=== PATIENT | male | born 1950 | race Caucasian/White ===

== ENCOUNTER → 2017-08-23 08:06 | Outpatient (CLI) | payer MEDICARE, OTHER, SELFPAY ==
--- NOTE | 2017-08-23 | DI.ECHO.S_ITS ---
[facility] +---------+ [facility] +---------+ : : [address] : : [place], [place] : : : : [id number] : : : : Phone: [phone]+ Echocardiogram Report + + :Name: FERSANGDENISSEANSHU LOVELY Gustavo Study Date: 08/23/2017 Height: 72 in : :[facility] Weight: 308 lb : : Gender: Male BSA: 2.6 m2 : :: 1950 Age: 67 yrs BP: 160/92 mmHg: :Reason For Study: Atrial fibrillation : : Performed By: Sarah Lizarraga : :Referring: SHERIE LR : + + Interpretation Summary Left ventricular systolic function is low normal with the ejection fraction grossly estimated to be 50-60% with considerable teuu-pk-xahl variability but no obvious focal wall motion abnormality and grossly appears unchanged compared to the previous study. Left ventricular wall thickness is mildly increased but likely unchanged compared to the previous study. The right ventricle is mildly dilated and systolic function is mildly reduced. The right ventricle appears slightly larger and slightly less dynamic compared to the previous study. The right ventricular systolic pressure is estimated at 50 mmHg assuming a right atrial pressure of 8 mm Hg, and is likely similar to the previous study. The left atrium is moderately dilated and the right atrium is moderate to severely dilated. Both atria are essentially unchanged in size since the prior echo exam. There is mild to moderate tricuspid regurgitation that is slightly more prominent compared to the previous study but there is no other significant valvular heart disease. The aortic root and ascending aorta are mildly enlarged but grossly similar in size compared to the previous study. The patient was in atrial fibrillation with heart rates between 87-104 bpm during the exam which is slightly slower compared to the previous study. Procedure: A two-dimensional transthoracic echocardiogram with color flow and Doppler was performed. The study quality was technically difficult. Comparison is made with the echocardiogram of 06-14-12. 1.5 ml of Definity contrast was used to improve image quality. The patient was in atrial fibrillation with heart rates between 87-104 bpm during the exam. This is slightly slower compared to the previous study. Left Ventricle: The left ventricle is normal in size. Left ventricular wall thickness is mildly increased. This is unchanged compared to the previous study. Left ventricular systolic function is low normal. Left ventricular ejection fraction is estimated to be 50-60%. There is considerable beat-to- beat variability but no obvious focal wall motion abnormality. This is unchanged compared to the previous study. Diastolic function could not be accurately assessed due to atrial fibrillation. Right Ventricle: The right ventricle is mildly dilated. Right ventricular systolic function is mildly reduced. This is slightly larger and slightly less dynamic compared to the previous study. Atria: The left atrium is moderately dilated. Both atria have remained unchanged in size since the prior echo exam. The right atrium is moderate to severely dilated. The interatrial septum is intact with no evidence for an atrial septal defect. Mitral Valve: The mitral valve is normal in structure and function. There is trace mitral regurgitation. Aortic Valve: The aortic valve is trileaflet. The aortic valve opens well. No aortic regurgitation is present. Tricuspid Valve: The tricuspid valve leaflets are thin and pliable. There is mild to moderate tricuspid regurgitation. This is slightly more prominent compared to the previous study. The right ventricular systolic pressure is estimated at 50 mmHg assuming a right atrial pressure of 8 mm Hg. Likely similar to the previous study. Pulmonic Valve: The pulmonic valve is not well seen, but is grossly normal. There is trace pulmonic regurgitation. There is no other significant valvular heart disease. Great Vessels: The aortic root is mildly dilated. The ascending aorta is mildly enlarged. This is grossly similar in size compared to the previous study. The IVC is dilated (diameter is greater than 2.1 cm) yet it collapses greater than 50% with a sniff. This suggests a right atrial pressure of 8 mm Hg. Pericardium/ Pleura There is no pericardial effusion. There is an anterior echo-free space consistent with a fat pad. There is no pleural effusion. MMode/2D Measurements & Calculations LVIDd: 5.3 cm Ao root diam: 3.8 cm LVIDs: 3.9 cm Aortic Jxn: 3.1 cm FS: 26.0 % asc Aorta Diam: 3.7 cm EPSS: 0.92 cm Ao Arch Diam (Prox Trans): 2.9 cm IVSd: 1.5 cm LVPWd: 0.99 cm LV pires. diameter/BSA (cm/m^2): 2.1 LV sys. diameter/BSA (cm/m^2): 1.5 LA A2 area: 31.9 cm2 RA long axis: 8.0 cm LA A4 area: 34.4 cm2 RA area: 34.3 cm2 LA length (vol): 7.5 cm RA vol: 124.8 ml LA vol: 124.5 ml RA : 48.7 ml/m2 LA vol index: 48.7 ml/m2 IVC diam: 2.1 cm RVDd major: 6.5 cm RVD1 (basal): 2.8 cm RVD2 (mid): 2.7 cm Doppler Measurements & Calculations Ao V2 max: 139.7 cm/sec Med Peak E' Reagan: 8.0 cm/sec Ao V2 mean: 91.6 cm/sec Lat Peak E' Reagan: 11.4 cm/sec Ao max P.8 mmHg MV P1/2t: 53.6 msec Ao mean P.9 mmHg Ao V2 VTI: 26.9 cm TR max reagan: 324.2 cm/sec MV V2 mean: 59.0 cm/sec TR max P.0 mmHg MV mean P.9 mmHg PA V2 max: 85.3 cm/sec MV V2 VTI: 15.4 cm PA V2 mean: 55.1 cm/sec PA mean P.4 mmHg PA Accel Time: 0.12 sec MV P1/2t max reagan: 119.9 cm/sec MVA(P1/2t): 4.1 cm2 Reading Physician:PM
[2017-08-23 09:52] LABS: Alanine Aminotransferase 39 IU/L (21-72); Albumin 4.4 g/dL (3.5-5.0); Albumin Globulin Ratio 1.3 (1.0-2.8); Alkaline Phosphatase 61 U/L (38-126); Aspartate Aminotransferase 27 IU/L (17-59); BUN Creatinine Ratio 22.9 (6-22); Bilirubin Total 1.3 mg/dL (0.2-1.3); Calcium 9.1 mg/dL (8.4-10.2); Cholesterol 129 mg/dL (140-199); Estimated Glomerular Filt Rate > 60.0 mL/min (>60); Globulin 3.3 g/dL (1.7-4.1); Glucose 115 mg/dL (80-110); HDL Cholesterol 31 mg/dL (40-60); HEMOLYSIS < 15 (0-50); LDL Cholesterol Calculated 77 mg/dL (<100); Potassium 3.8 mmol/L (3.4-5.1); Sodium 144 mmol/L (137-145); Total Protein 7.7 g/dL (6.3-8.2); Triglycerides 107 mg/dL (35-150)
[2017-08-23 10:19] LABS: Thyroid Stimulating Hormone 3.85 uIU/mL (0.47-4.68)
== END ==
PROVIDERS: PCP Family Medicine; Visit Provider Specialist
DX: I48.2 Chronic atrial fibrillation (principal); I10 Essential (primary) hypertension; E78.2 Mixed hyperlipidemia
CPT/HCPCS: 36415; 80053; 80061; 83735; 84443; 93306; Q9957

== ENCOUNTER → 2018-02-13 13:57 | Outpatient (CLI) | payer MEDICARE, OTHER, SELFPAY ==
[2018-02-13 14:15] LABS: Mean Corpuscular HGB Conc 34.1 % (30-36); Mean Corpuscular Hemoglobin 32.6 PG (26-34); Mean Corpuscular Volume 95.4 fL (80-100); Platelet Count 159 X10^3/uL (150-400); Red Blood Cell Count 4.92 X10^6/uL (4.5-5.9); Red Cell Distribution Width 17.6 % (11.6-14.8)
[2018-02-13 15:16] LABS: Alanine Aminotransferase 34 IU/L (21-72); Albumin 4.6 g/dL (3.5-5.0); Albumin Globulin Ratio 1.4 (1.0-2.8); Alkaline Phosphatase 56 U/L (38-126); Aspartate Aminotransferase 32 IU/L (17-59); BUN Creatinine Ratio 24.3 (6-22); Bilirubin Total 1.1 mg/dL (0.2-1.3); Blood Urea Nitrogen 17 mg/dL (9-20); Calcium 9.3 mg/dL (8.4-10.2); Carbon Dioxide 31 mmol/L (22-32); Chloride 101 mmol/L (98-107); Estimated Glomerular Filt Rate > 60.0 mL/min (>60); Globulin 3.2 g/dL (1.7-4.1); Glucose 108 mg/dL (80-110); HEMOLYSIS < 15 (0-50); Potassium 4.6 mmol/L (3.4-5.1); Sodium 143 mmol/L (137-145); Total Protein 7.8 g/dL (6.3-8.2)
[2018-02-13 15:19] LABS: HEMOLYSIS < 15 (0-50); Iron 140 ug/dL (49-181)
[2018-02-13 15:30] LABS: Percent Iron Saturation 37 % (20-50); Total Iron Binding Capacity 377 ug/dL (261-462); Transferrin 318 mg/dL (206-381)
[2018-02-13 15:58] LABS: Vitamin D 25 Hydroxy (D3) 48.7 ng/mL (30.0-100.0)
== END ==
PROVIDERS: PCP Student in an Organized Health Care Education/Training Program; Visit Provider Student in an Organized Health Care Education/Training Program
DX: E83.119 Hemochromatosis, unspecified (principal); E87.6 Hypokalemia; I10 Essential (primary) hypertension; E55.9 Vitamin D deficiency, unspecified
CPT/HCPCS: 36415; 80053; 82306; 83540; 83550; 85027

== ENCOUNTER → 2018-03-03 08:50 | Outpatient (CLI) | payer MEDICARE, OTHER, SELFPAY ==
--- NOTE | 2018-03-03 08:52 | DI.US.S_ITS ---
PROCEDURE: US ABD AORTA ANEURYSM SCREEN INDICATIONS: AAA SCREEN TECHNIQUE: Real time scanning was performed of the aorta and iliac arteries, with image documentation. COMPARISON: [facility], CT, ABDOMEN/PELVIS WITH CONTRAST, 05/19/2017, 14:52. FINDINGS: Aorta: Proximal aortic diameter measures 3.0 cm. Mid-aorta is not well-seen due to bowel gas. Distal aortic diameter is 2.4 cm. Iliac arteries: Right common iliac artery measures 1.8 cm. Left common iliac artery measures 1.8 cm. IMPRESSION: 1. 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 Given the change compared to the prior CT and the differences in technique, a followup ultrasound is recommended in 12 months to demonstrate stability. Dictated by: Galindo Chaudhry M.D. on 03/03/2018 at 9:20 Approved by: Galindo Chaudhry M.D. on 03/03/2018 at 9:26
== END ==
PROVIDERS: PCP Student in an Organized Health Care Education/Training Program; Visit Provider Student in an Organized Health Care Education/Training Program
DX: Z13.6 Encounter for screening for cardiovascular disorders (principal); Z87.891 Personal history of nicotine dependence
CPT/HCPCS: 76706

== ENCOUNTER → 2018-07-04 15:31 | Outpatient (CLI) | payer MEDICARE, OTHER, SELFPAY ==
[2018-07-04 19:08] LABS: Appearance Urine UA CLOUDY; Bilirubin Urine UA NEGATIVE (NEGATIVE); Color Urine UA YELLOW; Glucose Urine UA NEGATIVE (Negative); Ketones Urine UA NEGATIVE (NEGATIVE); Leukocyte Esterase Urine UA 2+ (NEGATIVE); Nitrite Urine UA POSITIVE (Negative); Occult Blood Urine UA 2+ (Negative); Protein Urine UA TRACE (Negative); Urobilinogen Urine UA 0.2 E.U./dL (0.2); pH Urine UA 6.5 (4.5-8.0)
[2018-07-04 19:20] LABS: Amorphous Sediment Urine 1+; Bacteria Urine Moderate (10-30); Culture Indicated Urine Specimen Cultured; Mucus Urine 1+ (Negative); RBC Urine 1-5/HPF (0-5/HPF); Squamous Epithelial Cell Urine 0-1 /HPF; WBC Urine >100/HPF (0-5/HPF)
== END ==
PROVIDERS: PCP Student in an Organized Health Care Education/Training Program; Visit Provider Registered Nurse
DX: R39.89 Other symptoms and signs involving the genitourinary system (principal)
CPT/HCPCS: 81001; 87077; 87086; 87186

== ENCOUNTER → 2018-07-06 09:34 | Outpatient (CLI) | payer MEDICARE, OTHER, SELFPAY ==
[2018-07-06 11:22] LABS: Prostate Specific Antigen 2.25 ng/mL (0.10-4.00)
== END ==
PROVIDERS: PCP Student in an Organized Health Care Education/Training Program; Visit Provider Registered Nurse
DX: N40.0 Benign prostatic hyperplasia without lower urinary tract symptoms (principal)
CPT/HCPCS: 36415; 84153

== ENCOUNTER 2018-08-08 06:26 | Day surgery (SDC) | payer MEDICARE, OTHER, SELFPAY ==
[2018-08-08 07:14] VITALS: BP 153/107; PULSE 81; RESP 12; TEMP 36.3; O2SAT 96
[2018-08-08] MEDS: PROPARACAINE 0.5% OPHTH SOL 2 DROPS EYE-OP (07:30)
[2018-08-08] MEDS: CATARACT EYE COMPOUND (10 DROPS/SYRINGE) 3 DROPS EYE-OP (07:30)
[2018-08-08 07:32] VITALS: BMI 86.5
--- NOTE | 2018-08-08 07:47 | PM.PREOP ---
Pre-operative Note Interval Note History & Physical reviewed/Exam performed by Physician: No Changes to H&P: No
--- NOTE | 2018-08-08 07:47 | PM.OP.1 ---
Operative Date/Time/Diagnoses Pre-op diagnosis: Nuclear Cataract Left eye Post-op diagnosis: same Procedure & Clinicians Surgeon: Ezra Reid Anesthesia Type: MAC +/- and Sedation Operative Notes Procedure in detail: Patient brought to the operating suite. Tetracaine drops placed in the left eye. Patient was prepped and draped in sterile manner. Wire lid speculum was placed in the eye. Betadine drops were placed on the eye. This was irrigated. Lidocaine jelly was placed on the eye. A paracentesis port was created with a side-port blade. 0.1 mL 1% preservative free lidocaine was injected into the anterior chamber. The anterior chamber was deepened with viscoelastic. 2.6 mm keratome was used to create a temporal clear corneal incision. Cystotome and Utrata forceps were used to create continuous tear capsulorrhexis. Balanced salt solution was used to hydro dissect the nucleus. The phacoemulsification handpiece was inserted and the nucleus was removed using the stop and chop technique. The irrigation aspiration handpiece was inserted and the remaining cortex was removed. Anterior chamber was deepened with viscoelastic. An Brown ZCB00 intraocular lens with a power of 19.0 was injected into the capsular bag. Irrigation aspiration handpiece was inserted and the remaining viscoelastic was removed. Incision was hydrated with balanced salt solution and found to be leak free with pressure with Weck-Katlyn sponges. 0.1 mL Vigamox injected anterior chamber. 0.3 mL Kenalog 10 mg was injected subconjunctivally. Lid speculum was removed. The patient left the operating room in excellent condition. Complications: none Condition: stable Disposition: same day surgery
--- NOTE | 2018-08-08 07:51 | SUR.OPER ---
Supine on eye stretcher, head on extension cradle secured with tape. Arms tucked at sides with blanket. Pillow under knees.
[2018-08-08] MEDS: TRIAMCINOLONE 50 MG/5 ML VIAL INJ (08:02)
[2018-08-08] MEDS: PHENYLEPHRINE/LIDOCAINE VIAL (OR) 0.2 ML EYE-OP (08:02)
[2018-08-08] MEDS: MOXIFLOXACIN OPHTH DROPS 3 ML BOTTLE 2 DROPS INJ (08:02)
[2018-08-08] MEDS: CHONDROIDTIN/SOD HYALURONATE 1.05 ML SYRINGE INTRAOCULA (08:03)
[2018-08-08] MEDS: LIDOCAINE JELLY 2% 5 ML 1 APPLIC TOP (08:04)
[2018-08-08] MEDS: TETRACAINE 0.5% OPHTH DROPS 4 ML 2 DROPS EYE-OP (08:04)
[2018-08-08] MEDS: BALANCED SALT IRRIG SOLN NO.2 500 ML, EPINEPHrine 1 MG IRR (08:05)
[2018-08-08 08:11] VITALS: BP 144/86; PULSE 80; RESP 15; TEMP 36.4; O2SAT 97
--- NOTE | 2018-08-08 08:23 | SUR.PHASEII ---
pt dressed when ready and left when ready and in stable condition.
== END 2018-08-08 08:25 ==
LOC: OR 06:29
PROVIDERS: PCP Student in an Organized Health Care Education/Training Program; Visit Provider Ophthalmology
DX: H25.12 Age-related nuclear cataract, left eye (principal); I10 Essential (primary) hypertension
CPT/HCPCS: J0171; J3301

== ENCOUNTER → 2018-08-10 12:48 | Outpatient (CLI) | payer MEDICARE, OTHER, SELFPAY ==
[2018-08-10 13:00] LABS: Hematocrit 48.2 % (41-53); Hemoglobin 16.2 g/dL (13.5-17.5); Mean Corpuscular HGB Conc 33.5 % (30-36); Mean Corpuscular Hemoglobin 33.6 PG (26-34); Mean Corpuscular Volume 100.2 fL (80-100); Platelet Count 163 X10^3/uL (150-400); Red Blood Cell Count 4.81 X10^6/uL (4.5-5.9); Red Cell Distribution Width 14.5 % (11.6-14.8); White Blood Cell Count 7.2 X10^3/uL (4.5-11.0)
[2018-08-10 13:26] LABS: HEMOLYSIS < 15 (0-50); Iron 209 ug/dL (49-181)
[2018-08-10 13:37] LABS: Percent Iron Saturation 59 % (20-50); Total Iron Binding Capacity 356 ug/dL (261-462); Transferrin 276 mg/dL (206-381)
[2018-08-10 13:58] LABS: 585 Gram Check PASS; Prediastolic 101; Presystolic 153; Pulse 67; Zero Check Sebra Scale PASS
[2018-08-10 13:59] LABS: Amount Collected in g 585 GRAM; Dizziness NO; Postdiastolic BP 111; Postsystolic BP 158; Site of phlebotomy LEFT AC; Swelling NO; Therapeutic Phleb Comment NO COMMENT
== END ==
PROVIDERS: PCP Student in an Organized Health Care Education/Training Program; Visit Provider Student in an Organized Health Care Education/Training Program
DX: E83.119 Hemochromatosis, unspecified (principal)
CPT/HCPCS: 36415; 83540; 83550; 85027; 99195

== ENCOUNTER 2018-08-22 06:23 | Day surgery (SDC) | payer MEDICARE, OTHER, SELFPAY ==
[2018-08-22 07:11] VITALS: BP 144/89; PULSE 78; RESP 20; TEMP 36.6; O2SAT 93; BMI 38.9
[2018-08-22] MEDS: PROPARACAINE 0.5% OPHTH SOL 2 DROPS EYE-OP (07:18)
[2018-08-22] MEDS: CATARACT EYE COMPOUND (10 DROPS/SYRINGE) 3 DROPS EYE-OP (07:24)
[2018-08-22] MEDS: PHENYLEPHRINE/LIDOCAINE VIAL (OR) 0.2 ML EYE-OP (07:53)
[2018-08-22] MEDS: TRIAMCINOLONE 50 MG/5 ML VIAL INJ (07:53)
[2018-08-22] MEDS: MOXIFLOXACIN OPHTH DROPS 3 ML BOTTLE 2 DROPS INJ (07:53)
[2018-08-22] MEDS: LIDOCAINE JELLY 2% 5 ML 1 APPLIC TOP (07:54)
[2018-08-22] MEDS: BALANCED SALT IRRIG SOLN NO.2 500 ML, EPINEPHrine 1 MG IRR (07:54)
[2018-08-22] MEDS: TETRACAINE 0.5% OPHTH DROPS 4 ML 2 DROPS EYE-OP (07:54)
[2018-08-22] MEDS: CHONDROIDTIN/SOD HYALURONATE 1.05 ML SYRINGE INTRAOCULA (07:54)
--- NOTE | 2018-08-22 08:00 | PM.PREOP ---
Pre-operative Note Interval Note History & Physical reviewed/Exam performed by Physician: No Changes to H&P: No
--- NOTE | 2018-08-22 08:01 | PM.OP.1 ---
Operative Date/Time/Diagnoses Pre-op diagnosis: Nuclear cataract right eye Procedure & Clinicians Procedure: Cataract Surgery Same procedure as scheduled: Yes Surgeon: Ezra Reid Anesthesia Type: MAC +/- and Sedation Operative Notes Procedure in detail: Patient brought to the operating suite. Tetracaine drops placed in the right eye. Patient was prepped and draped in sterile manner. Wire lid speculum was placed in the eye. Betadine drops were placed on the eye. This was irrigated. Lidocaine jelly was placed on the eye. A paracentesis port was created with a side-port blade. 0.1 mL 1% preservative free lidocaine was injected into the anterior chamber. The anterior chamber was deepened with viscoelastic. 2.6 mm keratome was used to create a temporal clear corneal incision. Cystotome and Utrata forceps were used to create continuous tear capsulorrhexis. Balanced salt solution was used to hydro dissect the nucleus. The phacoemulsification handpiece was inserted and the nucleus was removed using the stop and chop technique. The irrigation aspiration handpiece was inserted and the remaining cortex was removed. Anterior chamber was deepened with viscoelastic. An Brown ZCB00 intraocular lens with a power of 19.5 was injected into the capsular bag. Irrigation aspiration handpiece was inserted and the remaining viscoelastic was removed. Incision was hydrated with balanced salt solution and found to be leak free with pressure with Weck-Katlyn sponges. 0.1 mL Vigamox injected anterior chamber. 0.3 mL Kenalog 10 mg was injected subconjunctivally. Lid speculum was removed. The patient left the operating room in excellent condition. Complications: none Condition: stable Disposition: same day surgery
[2018-08-22 08:08] VITALS: BP 132/85; PULSE 89; RESP 16; TEMP 36.5; O2SAT 94
== END 2018-08-22 08:08 | disposition home or self-care (01) ==
LOC: OR 06:24
PROVIDERS: PCP Student in an Organized Health Care Education/Training Program; Visit Provider Ophthalmology
PROC: (CPT 66984; principal; 2018-08-22 07:45)
DX: H25.11 Age-related nuclear cataract, right eye (principal); I10 Essential (primary) hypertension
CPT/HCPCS: 66984; J0171; J2250; J3010; J3301

== ENCOUNTER → 2019-02-09 09:56 | Outpatient (CLI) | payer MEDICARE, OTHER, SELFPAY ==
[2019-02-09 10:46] LABS: 585 Gram Check PASS; Pulse 76; Zero Check Sebra Scale PASS
[2019-02-09 10:47] LABS: Dizziness NO; Postdiastolic BP 104; Postsystolic BP 160; Prediastolic 109; Presystolic 168; Site of phlebotomy RAC; Swelling NO; Therapeutic Phleb Comment NO COMMENT
[2019-02-09 11:22] LABS: Hematocrit 48.2 % (41-53); Hemoglobin 16.6 g/dL (13.5-17.5); Mean Corpuscular HGB Conc 34.4 % (30-36); Mean Corpuscular Volume 101.8 fL (80-100); Platelet Count 135 X10^3/uL (150-400); Red Blood Cell Count 4.74 X10^6/uL (4.5-5.9); Red Cell Distribution Width 13.6 % (11.6-14.8); White Blood Cell Count 6.8 X10^3/uL (4.5-11.0)
[2019-02-09 11:28] LABS: Alanine Aminotransferase 28 IU/L (<50); Albumin 4.9 g/dL (3.5-5.0); Albumin Globulin Ratio 1.6 (1.0-2.8); Alkaline Phosphatase 62 U/L (38-126); Aspartate Aminotransferase 32 IU/L (17-59); Bilirubin Total 1.6 mg/dL (0.2-1.3); Blood Urea Nitrogen 18 mg/dL (9-20); Calcium 9.8 mg/dL (8.4-10.2); Carbon Dioxide 28 mmol/L (22-32); Chloride 101 mmol/L (98-107); Estimated Glomerular Filt Rate > 60.0 mL/min (>60); Glucose 128 mg/dL (80-110); HEMOLYSIS < 15 (0-50); Iron 205 ug/dL (49-181); Sodium 141 mmol/L (137-145); Total Protein 7.9 g/dL (6.3-8.2)
[2019-02-09 11:38] LABS: Percent Iron Saturation 58 % (20-50); Total Iron Binding Capacity 353 ug/dL (261-462); Transferrin 277 mg/dL (206-381)
[2019-02-09 12:03] LABS: Ferritin 66.6 ng/mL (17.9-464)
[2019-02-12 12:46] LABS: Lipoprofile NMR SEE SEPERATE REPORT
== END ==
PROVIDERS: Specialist; PCP Student in an Organized Health Care Education/Training Program; Visit Provider Student in an Organized Health Care Education/Training Program
DX: E78.2 Mixed hyperlipidemia (principal); I48.20 Chronic atrial fibrillation, unspecified; E83.119 Hemochromatosis, unspecified; E87.6 Hypokalemia; I10 Essential (primary) hypertension
CPT/HCPCS: 36415; 80053; 82728; 83540; 83550; 83704; 85027; 99195

== ENCOUNTER → 2019-02-14 09:03 | Outpatient (CLI) | payer MEDICARE, OTHER, SELFPAY ==
--- NOTE | 2019-02-14 09:05 | DI.US.S_ITS ---
PROCEDURE: US RETRO PERITONEAL LIMITED INDICATIONS: FOLLOW-UP TECHNIQUE: Real time scanning was performed of the aorta and iliac arteries, with image documentation. COMPARISON: None. FINDINGS: Aorta: Proximal aortic diameter measures 2.7 cm. Mid-aorta measures 2.2 cm. Distal aortic diameter is 2.1 cm. Iliac arteries: Right common iliac artery measures 1.5 cm. Left common iliac artery measures 1.6 cm. IMPRESSION: Stable ectasia of the aorta. 5 year follow up ultrasound recommended. Dictated by: Sanya BOWERS Interpreted: Jennifer Diallo MD on 02/14/2019 at 10:28 Approved by: Jennifer Diallo MD, PhD on 02/14/2019 at 10:50
== END ==
PROVIDERS: Family Provider Specialist; PCP Student in an Organized Health Care Education/Training Program; Visit Provider Student in an Organized Health Care Education/Training Program
DX: I77.819 Aortic ectasia, unspecified site (principal)
CPT/HCPCS: 76775

== ENCOUNTER → 2019-03-20 10:04 | Outpatient (CLI) | payer MEDICARE, OTHER, SELFPAY ==
[2019-03-20 10:18] LABS: Bacteria Urine None Seen; RBC Urine None Seen (0-5/HPF); WBC Urine None Seen (0-5/HPF)
[2019-03-20 11:00] LABS: Hematocrit 46.2 % (41-53); Hemoglobin 16.1 g/dL (13.5-17.5); Mean Corpuscular HGB Conc 34.9 % (30-36); Mean Corpuscular Hemoglobin 35.3 PG (26-34); Mean Corpuscular Volume 101.2 fL (80-100); Platelet Count 164 X10^3/uL (150-400); Red Blood Cell Count 4.57 X10^6/uL (4.5-5.9); Red Cell Distribution Width 13.9 % (11.6-14.8); White Blood Cell Count 6.5 X10^3/uL (4.5-11.0)
[2019-03-20 11:32] LABS: Appearance Urine UA CLEAR; Bilirubin Urine UA NEGATIVE (NEGATIVE); Color Urine UA YELLOW; Glucose Urine UA NEGATIVE (Negative); Ketones Urine UA NEGATIVE (NEGATIVE); Leukocyte Esterase Urine UA NEGATIVE (NEGATIVE); Nitrite Urine UA NEGATIVE (Negative); Occult Blood Urine UA NEGATIVE (Negative); Protein Urine UA 1+ (Negative); Specific Gravity Urine UA <=1.005 (1.000-1.035); Urobilinogen Urine UA 0.2 E.U./dL (0.2)
[2019-03-20 11:36] LABS: HEMOLYSIS < 15 (0-50); Iron 162 ug/dL (49-181)
[2019-03-20 11:47] LABS: Percent Iron Saturation 46 % (20-50); Total Iron Binding Capacity 356 ug/dL (261-462); Transferrin 285 mg/dL (206-381)
[2019-03-20 11:47] LABS: Culture Indicated Urine Cult Not Indicated; Urine Comments Microscopic Normal
[2019-03-20 12:13] LABS: Ferritin 56.8 ng/mL (17.9-464)
== END ==
PROVIDERS: PCP Student in an Organized Health Care Education/Training Program; Visit Provider Student in an Organized Health Care Education/Training Program
DX: E83.119 Hemochromatosis, unspecified (principal); E87.6 Hypokalemia; I10 Essential (primary) hypertension; R31.21 Asymptomatic microscopic hematuria
CPT/HCPCS: 36415; 81001; 82728; 83540; 83550; 85027

== ENCOUNTER → 2019-08-14 09:17 | Outpatient (CLI) | payer MEDICARE, OTHER, SELFPAY ==
[2019-08-14 10:56] LABS: Alanine Aminotransferase 41 IU/L (<50); Albumin 4.5 g/dL (3.5-5.0); Albumin Globulin Ratio 1.3 (1.0-2.8); Alkaline Phosphatase 55 U/L (38-126); Aspartate Aminotransferase 38 IU/L (17-59); BUN Creatinine Ratio 23.9 (6-22); Blood Urea Nitrogen 16 mg/dL (9-20); Calcium 9.2 mg/dL (8.4-10.2); Carbon Dioxide 30 mmol/L (22-32); Chloride 102 mmol/L (98-107); Estimated Glomerular Filt Rate > 60.0 mL/min (>60); Globulin 3.6 g/dL (1.7-4.1); Glucose 120 mg/dL (80-110); HEMOLYSIS < 15 (0-50); Potassium 3.9 mmol/L (3.4-5.1); Sodium 139 mmol/L (137-145); Total Protein 8.1 g/dL (6.3-8.2)
[2019-08-16 08:19] LABS: Cholesterol, Total 143 mg/dL (100-199); HDL-Cholesterol 38 mg/dL (>39); HDL-Particle (Total) 28.2 umol/L (>=30.5); Historical Reading Comment: (.); LDL Particle 1186 nmol/L (<1000); LDL-Cholsterol 84 mg/dL (0-99); LP-IR Score 61 (<=45); Small LDL- Particle 819 nmol/L (<=527); Triglycerides 107 mg/dL (0-149)
== END ==
PROVIDERS: PCP Student in an Organized Health Care Education/Training Program; Referring Provider Specialist; Visit Provider Specialist
DX: I48.20 Chronic atrial fibrillation, unspecified (principal); E78.2 Mixed hyperlipidemia
CPT/HCPCS: 36415; 80053; 80061; 83704

== ENCOUNTER → 2019-08-30 09:27 | Outpatient (CLI) | payer MEDICARE, OTHER, SELFPAY ==
[2019-08-30 10:44] LABS: Alanine Aminotransferase 35 IU/L (<50); Albumin 4.6 g/dL (3.5-5.0); Albumin Globulin Ratio 1.4 (1.0-2.8); Alkaline Phosphatase 63 U/L (38-126); Aspartate Aminotransferase 41 IU/L (17-59); Bilirubin Total 1.7 mg/dL (0.2-1.3); Blood Urea Nitrogen 18 mg/dL (9-20); Calcium 9.3 mg/dL (8.4-10.2); Carbon Dioxide 31 mmol/L (22-32); Chloride 99 mmol/L (98-107); Estimated Glomerular Filt Rate > 60.0 mL/min (>60); Globulin 3.4 g/dL (1.7-4.1); Glucose 129 mg/dL (80-110); HEMOLYSIS < 15 (0-50); Potassium 3.8 mmol/L (3.4-5.1); Sodium 138 mmol/L (137-145)
[2019-09-03 08:08] LABS: Cholesterol, Total 142 mg/dL (100-199); HDL-Cholesterol 36 mg/dL (>39); HDL-Particle (Total) 24.6 umol/L (>=30.5); Historical Reading Comment: (.); LDL Particle 1323 nmol/L (<1000); LDL Size 20.1 nm (>20.5); LDL-Cholsterol 83 mg/dL (0-99); LP-IR Score 63 (<=45); Small LDL- Particle 879 nmol/L (<=527); Triglycerides 116 mg/dL (0-149)
== END ==
PROVIDERS: PCP Student in an Organized Health Care Education/Training Program; Referring Provider Specialist; Visit Provider Specialist
DX: I48.20 Chronic atrial fibrillation, unspecified (principal); E78.2 Mixed hyperlipidemia
CPT/HCPCS: 36415; 80053; 80061; 83704

== ENCOUNTER → 2019-09-27 09:45 | Outpatient (CLI) | payer MEDICARE, OTHER, SELFPAY ==
[2019-09-27 10:18] LABS: 585 Gram Check PASS; Dizziness NO; Postdiastolic BP 101; Postsystolic BP 155; Prediastolic 103; Presystolic 155; Pulse 88; Site of phlebotomy LAC; Swelling NO; Therapeutic Phleb Comment NO COMMENT; Zero Check Sebra Scale PASS
[2019-09-27 10:30] LABS: Hematocrit 47.8 % (41-53); Hemoglobin 16.7 g/dL (13.5-17.5); Mean Corpuscular Hemoglobin 35.4 PG (26-34); Mean Corpuscular Volume 101.3 fL (80-100); Platelet Count 140 X10^3/uL (150-400); Red Blood Cell Count 4.72 X10^6/uL (4.5-5.9); Red Cell Distribution Width 13.8 % (11.6-14.8); White Blood Cell Count 6.3 X10^3/uL (4.5-11.0)
[2019-09-27 11:06] LABS: HEMOLYSIS 17 (0-50); Iron 193 ug/dL (49-181)
[2019-09-27 11:16] LABS: Percent Iron Saturation 54 % (20-50); Total Iron Binding Capacity 357 ug/dL (261-462); Transferrin 270 mg/dL (206-381)
[2019-09-27 11:42] LABS: Ferritin 110 ng/mL (18-464)
== END ==
PROVIDERS: PCP Student in an Organized Health Care Education/Training Program; Referring Provider Student in an Organized Health Care Education/Training Program; Visit Provider Student in an Organized Health Care Education/Training Program
DX: E83.119 Hemochromatosis, unspecified (principal)
CPT/HCPCS: 82728; 83540; 83550; 85027; 99195

== ENCOUNTER → 2020-01-09 12:11 | Outpatient (CLI) | payer MEDICARE, OTHER, SELFPAY ==
[2020-01-09 14:54] LABS: Alanine Aminotransferase 29 IU/L (<50); Albumin 4.6 g/dL (3.5-5.0); Albumin Globulin Ratio 1.3 (1.0-2.8); Alkaline Phosphatase 60 U/L (38-126); Aspartate Aminotransferase 34 IU/L (17-59); BUN Creatinine Ratio 24.2 (6-22); Bilirubin Total 1.6 mg/dL (0.2-1.3); Blood Urea Nitrogen 16 mg/dL (9-20); Calcium 9.5 mg/dL (8.4-10.2); Carbon Dioxide 31 mmol/L (22-32); Chloride 102 mmol/L (98-107); Estimated Glomerular Filt Rate > 60.0 mL/min (>60); Globulin 3.6 g/dL (1.7-4.1); Glucose 115 mg/dL (80-110); HEMOLYSIS < 15 (0-50); Magnesium 2.1 mg/dL (1.6-2.3); Potassium 3.6 mmol/L (3.4-5.1); Sodium 139 mmol/L (137-145); Total Protein 8.2 g/dL (6.3-8.2)
[2020-01-16 13:16] LABS: LDL Particle 1585
[2020-01-16 13:17] LABS: Cholesterol, Total 168; HDL-Cholesterol 35; HDL-Particle (Total) 25.9; LDL Size 20.1; LDL-Cholsterol 110; LP-IR Score 81; Small LDL- Particle 923; Triglycerides 130
== END ==
PROVIDERS: PCP Student in an Organized Health Care Education/Training Program; Referring Provider Specialist; Visit Provider Specialist
DX: I10 Essential (primary) hypertension (principal); E78.2 Mixed hyperlipidemia; I48.20 Chronic atrial fibrillation, unspecified
CPT/HCPCS: 36415; 80053; 80061; 83704; 83735

== ENCOUNTER → 2020-01-25 10:53 | Outpatient (CLI) | payer MEDICARE, OTHER, SELFPAY ==
[2020-01-25 12:57] LABS: BUN Creatinine Ratio 32.8 (6-22); Blood Urea Nitrogen 22 mg/dL (9-20); Calcium 9.4 mg/dL (8.4-10.2); Carbon Dioxide 29 mmol/L (22-32); Chloride 102 mmol/L (98-107); Estimated Glomerular Filt Rate > 60.0 mL/min (>60); Glucose 109 mg/dL (80-110); HEMOLYSIS < 15 (0-50); Potassium 3.8 mmol/L (3.4-5.1); Sodium 140 mmol/L (137-145)
== END ==
PROVIDERS: PCP Student in an Organized Health Care Education/Training Program; Referring Provider Specialist; Visit Provider Specialist
DX: I10 Essential (primary) hypertension (principal)
CPT/HCPCS: 36415; 80048

== ENCOUNTER → 2020-02-05 14:46 | Outpatient (CLI) | payer MEDICARE, OTHER, SELFPAY ==
--- NOTE | 2020-02-05 | DI.ECHO.S_ITS ---
[facility] +---------+ Hospital +---------+ : : [address] : : : : [place] : : : : [id number] : : : : Phone: [phone]+ Echocardiogram Report + + :Name: LOVELY GEORGE Study Date: 02/05/2020 Height: 72 in : :[facility] Weight: 312 lb : : Gender: Male BSA: 2.6 m2 : :: 1950 Age: 69 yrs BP: 164/90 mmHg: :Reason For Study: PULMONARY HYPERTENSION : :Ordering Physician: BE, : :SHERIE Performed By: Hien Barton : :Referring: SHERIE LR : + + Interpretation Summary Left ventricular systolic function grossly appears normal without any obvious focal wall motion abnormality with an ejection fraction of 55 to 65% with considerable icfd-ui-jhbu variability because of atrial fibrillation. It appears slightly more dynamic compared to the previous study. There is mild to moderate LVH but diastolic function cannot be accurately assessed because of atrial fibrillation yet there is no significant evidence for elevated filling pressures. The right ventricle is mild to moderately enlarged with mildly reduced systolic function and appears larger and slightly less dynamic compared to the previous study. There continues to be moderate pulmonary hypertension with a right ventricular systolic pressure estimated at 54 mmHg with a CVP of 3 mmHg, likely similar to the previous study. There is severe biatrial enlargement with both atria significantly increasing in size since the previous study. There is mild to moderate tricuspid regurgitation that remains unchanged and no other significant valvular abnormality. The ascending aorta is moderately enlarged and measures slightly larger compared to the previous study. The aortic arch is borderline enlarged. The patient was in atrial fibrillation at 70-101 bpm throughout the study. Procedure: A two-dimensional transthoracic echocardiogram with color flow and Doppler was performed. The study quality was technically difficult. A contrast injection of Definity was performed to improve assessment of LV function. Contrast was injected into an intravenous site in the right arm. The patient was in atrial fibrillation with heart rates between 70-101 bpm during the exam. Left Ventricle: The left ventricle is normal in size. Left ventricular wall thickness is mild-moderately increased. There is mild-moderate concentric left ventricular hypertrophy. The ejection fraction is estimated to be 55-60%. Left ventricular systolic function appears normal without focal wall motion abnormalities. Left ventricular ejection fraction is estimated to be 55 to 65% with considerable tkag-gl-ehku variation due to atrial fibrillation. This is slightly more dynamic compared to the previous study. Diastolic function could not be accurately assessed due to atrial fibrillation. This is unchanged compared to the previous study. Right Ventricle: The right ventricle is mild to moderately dilated. Right ventricular systolic function is mildly reduced. This is larger and slightly less dynamic compared to the previous study. Atria: Both atria are severely dilated. Both atria have significantly increased in size since the prior echo exam. There is no Doppler evidence for an interatrial shunt. Mitral Valve: The mitral valve is normal in structure and function. There is trace mitral regurgitation. This is unchanged compared to the previous study. Aortic Valve: The aortic valve is trileaflet. The aortic valve is grossly normal. The aortic valve opens well. There is no aortic valve stenosis. No aortic regurgitation is present. Tricuspid Valve: The tricuspid valve is not well visualized, but is grossly normal. There is mild to moderate tricuspid regurgitation. The right ventricular systolic pressure is estimated to be at least 54 mmHg based on an estimated right atrial pressure of 3 mm Hg. This is similar compared to the previous study. Pulmonic Valve: The pulmonic valve is not well visualized. There is trace pulmonic regurgitation. Great Vessels: The aortic root is normal size. The ascending aorta is mildly enlarged. This is slightly larger compared to the previous study. The aortic arch is at the upper limits of normal in size. The IVC is of normal diameter and collapses greater than 50% with a sniff. This suggests a low right atrial pressure of 3 mm Hg. Pericardium/ Pleura There is no pericardial effusion. There is no pleural effusion. MMode/2D Measurements & Calculations LVIDd: 4.8 cm LVOT diam: 2.3 cm LVIDs: 3.4 cm Ao root diam: 3.5 cm FS: 29.3 % asc Aorta Diam: 4.0 cm EPSS: 0.78 cm Ao Arch Diam (Prox Trans): 3.2 cm IVSd: 1.3 cm LVPWd: 1.6 cm LV piers. diameter/BSA (cm/m^2): 1.9 LV sys. diameter/BSA (cm/m^2): 1.3 LA A2 area: 37.0 cm2 RA long axis: 7.6 cm LA A4 area: 34.2 cm2 RA area: 40.6 cm2 LA length (vol): 7.2 cm RA vol: 183.1 ml LA vol: 148.7 ml RA : 71.2 ml/m2 LA vol index: 57.8 ml/m2 IVC diam: 1.7 cm RVD1 (basal): 4.8 cm Doppler Measurements & Calculations Ao V2 max: 142.7 cm/sec LVOT Max Reagan: 71.8 cm/sec Ao V2 mean: 105.0 cm/sec LV V1 max P.1 mmHg Ao max P.1 mmHg LV V1 VTI: 12.6 cm Ao mean P.8 mmHg ISAAC(I,D): 1.8 cm2 Ao V2 VTI: 29.6 cm ISAAC(V,D): 2.1 cm2 sev ratio: 0.43 ISAAC indexed to BSA (cm^2/m^2): 0.69 MV E max reagan: 112.7 cm/sec TR max reagan: 328.2 cm/sec MV A max reagan: 0.76 cm/sec TR max P.3 mmHg MV E/A: 147.5 PA V2 max: 75.6 cm/sec Med Peak E' Reagan: 9.6 cm/sec PA V2 mean: 42.1 cm/sec E/E' med: 11.8 PA mean P.89 mmHg Lat Peak E' Reagan: 14.0 cm/sec PA pr(Accel): 48.2 mmHg E/E' lat: 8.1 E/e' average: 9.9 MV dec time: 0.15 sec SV(LVOT): 52.5 ml Reading Physician:05:14 PM
== END ==
PROVIDERS: PCP Student in an Organized Health Care Education/Training Program; Referring Provider Specialist; Visit Provider Specialist
DX: I07.1 Rheumatic tricuspid insufficiency (principal); I27.20 Pulmonary hypertension, unspecified; I77.89 Other specified disorders of arteries and arterioles; G47.33 Obstructive sleep apnea (adult) (pediatric)
CPT/HCPCS: 93306; Q9957

== ENCOUNTER → 2020-04-29 16:34 | Outpatient (CLI) | payer MEDICARE, OTHER, SELFPAY ==
[2020-04-29] MEDS: COVID-19 VACC #1, MRNA(MOD) 100 MCG/0.5 ML VIAL IM (16:43)
== END ==
PROVIDERS: PCP Student in an Organized Health Care Education/Training Program; Visit Provider Internal Medicine
DX: Z23 Encounter for immunization (principal)
CPT/HCPCS: 0011A; 91301

== ENCOUNTER → 2020-05-28 16:07 | Outpatient (CLI) | payer MEDICARE, OTHER, SELFPAY ==
[2020-05-28] MEDS: COVID-19 VACC #2, MRNA(MOD) 100 MCG/0.5 ML VIAL IM (16:14)
== END ==
PROVIDERS: PCP Student in an Organized Health Care Education/Training Program; Visit Provider Internal Medicine
DX: Z23 Encounter for immunization (principal)
CPT/HCPCS: 0012A; 91301

== ENCOUNTER → 2020-06-18 15:55 | Outpatient (CLI) | payer MEDICARE, OTHER, SELFPAY ==
--- NOTE | 2020-06-18 15:58 | DI.RAD.S_ITS ---
PROCEDURE: XR FOOT RT MIN 3V INDICATIONS: Retained foreign body in right foot. TECHNIQUE: 3 views of the foot were acquired. COMPARISON: [facility], , FOOT 3V RIGHT, 10/16/2012, 11:13. FINDINGS: Bones: No fracture. Scattered degenerative subchondral sclerosis and spurring. Plantar calcaneal spurring. 1st MTP joint degeneration. Soft tissues: Linear metallic soft tissue foreign body projects adjacent to the 2nd and 3rd metatarsal as before. IMPRESSION: Unchanged appearance of the linear metallic foreign body as above. Scattered chronic degenerative changes. Dictated by: Denton Giordano M.D. on 06/18/2020 at 16:44 Approved by: Denton Giordano M.D. on 06/18/2020 at 16:48
== END ==
PROVIDERS: PCP Student in an Organized Health Care Education/Training Program; Referring Provider Student in an Organized Health Care Education/Training Program; Visit Provider Student in an Organized Health Care Education/Training Program
DX: S90.851A Superficial foreign body, right foot, initial encounter (principal)
CPT/HCPCS: 73630

== ENCOUNTER → 2020-08-05 08:40 | Outpatient (CLI) | payer MEDICARE, OTHER, SELFPAY ==
[2020-08-05 10:47] LABS: Alanine Aminotransferase 22 IU/L (<50); Albumin 4.3 g/dL (3.5-5.0); Albumin Globulin Ratio 1.4 (1.0-2.8); Alkaline Phosphatase 59 U/L (38-126); Aspartate Aminotransferase 27 IU/L (17-59); BUN Creatinine Ratio 23.8 (6-22); Bilirubin Total 1.4 mg/dL (0.2-1.3); Blood Urea Nitrogen 15 mg/dL (9-20); Calcium 9.5 mg/dL (8.4-10.2); Carbon Dioxide 33 mmol/L (22-32); Chloride 100 mmol/L (98-107); Estimated Glomerular Filt Rate > 60.0 mL/min (>60); Glucose 124 mg/dL (80-110); HEMOLYSIS < 15 (0-50); Potassium 3.8 mmol/L (3.4-5.1); Sodium 142 mmol/L (137-145); Total Protein 7.3 g/dL (6.3-8.2)
[2020-08-06 12:18] LABS: HEMOLYSIS < 15 (0-50); Iron 196 ug/dL (49-181)
[2020-08-06 12:28] LABS: Percent Iron Saturation 62 % (20-50); Total Iron Binding Capacity 314 ug/dL (261-462); Transferrin 236 mg/dL (206-381)
[2020-08-06 12:54] LABS: Ferritin 165 ng/mL (18-464)
[2020-08-07 10:09] LABS: Cholesterol, Total 115 mg/dL (100-199); HDL-Cholesterol 36 mg/dL (>39); HDL-Particle (Total) 27.9 umol/L (>=30.5); LDL Particle 810 nmol/L (<1000); LDL-Cholsterol 61 mg/dL (0-99); LP-IR Score 62 (<=45); Small LDL- Particle 520 nmol/L (<=527); Triglycerides 96 mg/dL (0-149)
== END ==
PROVIDERS: PCP Student in an Organized Health Care Education/Training Program; Referring Provider Specialist; Visit Provider Specialist
DX: E78.2 Mixed hyperlipidemia (principal); I48.20 Chronic atrial fibrillation, unspecified; E83.119 Hemochromatosis, unspecified
CPT/HCPCS: 36415; 80053; 80061; 82728; 83540; 83550; 83704; 83735

== ENCOUNTER → 2020-08-20 09:57 | Outpatient (CLI) | payer MEDICARE, OTHER, SELFPAY ==
[2020-08-20 10:36] LABS: 585 Gram Check PASS; Zero Check Sebra Scale PASS
[2020-08-20 10:37] LABS: Dizziness NO; Postdiastolic BP 102; Postsystolic BP 145; Prediastolic 106; Presystolic 156; Pulse 77; Site of phlebotomy RAC; Swelling NO; Therapeutic Phleb Comment NO COMMENT
[2020-08-20 12:16] LABS: Prostate Specific Antigen Scrn 0.894 ng/mL (0.1-4.0)
--- NOTE | 2020-08-20 16:14 | DI.MRI.S_ITS ---
PROCEDURE: MR CERVICAL SPINE WO CON INDICATIONS: Cervical radiculopathy TECHNIQUE: Noncontrast sagittal T1 spin echo and T2 fast spin echo, sagittal STIR, foraminal oblique sagittal T2 fast spin echo, and axial gradient echo or T2 fast spin echo through the cervical spine. COMPARISON: None. FINDINGS: Image quality: This examination is limited by involuntary motion artifact. Alignment and Curvature: There is norm overall straightening of the normal cervical lordosis. No focal AP alignment abnormality is seen. Bone Marrow: Marrow demonstrates normal overall signal. Spinal Cord: Visualized spinal cord has normal size and signal. No cerebellar tonsillar herniation. Paraspinous Soft Tissues: No paravertebral masses. Prevertebral soft tissues are normal in thickness. C2-C3: The disc height is well-preserved. Loss of disc signal is seen at this level. A mild degree of generalized disc osteophyte complex is seen. There is a mild central disc protrusion. There is mild left-sided and no right-sided neural foraminal narrowing seen. Mild central canal narrowing is seen. C3-C4: The disc height is well-preserved. Loss of disc signal is seen at this level. Moderate generalized disc osteophyte complex is seen. Moderate facet joint hypertrophy is seen. There is moderate to severe bilateral neural foraminal narrowing seen. Mild to moderate central canal narrowing is seen at this level. C4-C5: The disc height is well-preserved. Loss of disc signal is seen at this level. Moderate generalized disc osteophyte complex is seen. Moderate facet joint hypertrophy is seen. There is moderate to severe bilateral neural foraminal narrowing at this level. Mild central canal narrowing is seen. C5-C6: Moderate loss of disc height is seen. Loss of disc signal is seen. Bridging endplate osteophytes are seen. Moderate to prominent disc osteophyte complex is seen at this level. Uncovertebral joint hypertrophy is seen at this level. There is at least moderate bilateral facet hypertrophy seen. Moderate to severe bilateral neural foraminal narrowing is seen. Moderate central canal narrowing is seen. There is associated mass effect upon the ventral spinal cord. C6-C7: Moderate loss of disc height is seen. Loss of disc signal is seen. Moderate to prominent disc osteophyte complex is seen. There is at least moderate facet hypertrophy seen at this level. Moderate to severe bilateral neural foraminal narrowing is seen. Moderate central canal narrowing is seen. C7-T1: Mild loss of disc height is seen. Loss of disc signal is seen. Moderate disc osteophyte complex is seen. There is a central/left disc extrusion, which measures 9 mm craniocaudal, which is best seen on series 8, image 13 and on series 3 image 12. There is associated moderate central canal narrowing, with mild mass effect upon the ventral spinal cord. There is moderate to severe bilateral neural foraminal narrowing seen. IMPRESSION: At C7-T1, there is a central/left disc extrusion. Degenerative changes are seen throughout, which are worst inferiorly. Dictated by: Nathan Hathaway M.D. on 08/20/2020 at 16:56 Approved by: Nathan Hathaway M.D. on 08/20/2020 at 17:02
== END ==
PROVIDERS: PCP Student in an Organized Health Care Education/Training Program; Referring Provider Student in an Organized Health Care Education/Training Program; Visit Provider Student in an Organized Health Care Education/Training Program
DX: M50.13 Cervical disc disorder with radiculopathy, cervicothoracic region (principal); M47.22 Other spondylosis with radiculopathy, cervical region; E83.119 Hemochromatosis, unspecified; Z12.5 Encounter for screening for malignant neoplasm of prostate; M62.838 Other muscle spasm
CPT/HCPCS: 72141; 99195; G0103

== ENCOUNTER → 2020-09-26 13:55 | Outpatient (CLI) | payer MEDICARE, OTHER, SELFPAY ==
[2020-09-26 15:35] LABS: Alanine Aminotransferase 30 IU/L (<50); Albumin 4.3 g/dL (3.5-5.0); Albumin Globulin Ratio 1.4 (1.0-2.8); Alkaline Phosphatase 58 U/L (38-126); Aspartate Aminotransferase 31 IU/L (17-59); BUN Creatinine Ratio 22.9 (6-22); Bilirubin Total 1.1 mg/dL (0.2-1.3); Blood Urea Nitrogen 19 mg/dL (9-20); Calcium 9.7 mg/dL (8.4-10.2); Carbon Dioxide 30 mmol/L (22-32); Chloride 102 mmol/L (98-107); Estimated Glomerular Filt Rate > 60.0 mL/min (>60); Globulin 3.1 g/dL (1.7-4.1); Glucose 107 mg/dL (80-110); HEMOLYSIS < 15 (0-50); Magnesium 1.9 mg/dL (1.6-2.3); Potassium 4.1 mmol/L (3.4-5.1); Sodium 139 mmol/L (137-145); Total Protein 7.4 g/dL (6.3-8.2)
[2020-09-30 08:13] LABS: Cholesterol, Total 111 mg/dL (100-199); HDL-Cholesterol 31 mg/dL (>39); HDL-Particle (Total) 25.6 umol/L (>=30.5); LDL Particle 823 nmol/L (<1000); LDL-Cholsterol 55 mg/dL (0-99); LP-IR Score 82 (<=45); Small LDL- Particle 573 nmol/L (<=527); Triglycerides 146 mg/dL (0-149)
== END ==
PROVIDERS: PCP Student in an Organized Health Care Education/Training Program; Referring Provider Physician Assistant Medical; Visit Provider Specialist
DX: I10 Essential (primary) hypertension (principal); E78.2 Mixed hyperlipidemia; I48.20 Chronic atrial fibrillation, unspecified
CPT/HCPCS: 36415; 80053; 80061; 83704; 83735

== ENCOUNTER → 2021-02-16 08:04 | Outpatient (CLI) | payer MEDICARE, OTHER, SELFPAY ==
[2021-02-16 09:17] LABS: Alanine Aminotransferase 27 IU/L (<50); Albumin 4.4 g/dL (3.5-5.0); Albumin Globulin Ratio 1.4 (1.0-2.8); Alkaline Phosphatase 65 U/L (38-126); Aspartate Aminotransferase 30 IU/L (17-59); BUN Creatinine Ratio 21.3 (6-22); Bilirubin Total 1.3 mg/dL (0.2-1.3); Blood Urea Nitrogen 16 mg/dL (9-20); Calcium 9.5 mg/dL (8.4-10.2); Carbon Dioxide 32 mmol/L (22-32); Chloride 100 mmol/L (98-107); Estimated Glomerular Filt Rate > 60.0 mL/min (>60); Globulin 3.1 g/dL (1.7-4.1); Glucose 131 mg/dL (80-110); HEMOLYSIS < 15 (0-50); Magnesium 1.9 mg/dL (1.6-2.3); Potassium 3.6 mmol/L (3.4-5.1); Sodium 141 mmol/L (137-145); Total Protein 7.5 g/dL (6.3-8.2)
[2021-02-18 08:06] LABS: Cholesterol, Total 119 mg/dL (100-199); HDL-Cholesterol 37 mg/dL (>39); HDL-Particle (Total) 29.7 umol/L (>=30.5); LDL Particle 692 nmol/L (<1000); LDL Size 20.3 nm (>20.5); LDL-Cholsterol 61 mg/dL (0-99); LP-IR Score 71 (<=45); Small LDL- Particle 413 nmol/L (<=527); Triglycerides 114 mg/dL (0-149)
== END ==
PROVIDERS: PCP Student in an Organized Health Care Education/Training Program; Referring Provider Specialist; Visit Provider Specialist
DX: I48.20 Chronic atrial fibrillation, unspecified (principal); E78.2 Mixed hyperlipidemia
CPT/HCPCS: 36415; 80053; 80061; 83704; 83735

== ENCOUNTER → 2021-08-27 10:01 | Outpatient (CLI) | payer MEDICARE, OTHER, SELFPAY ==
[2021-08-27 11:25] LABS: Alanine Aminotransferase 42 IU/L (<50); Albumin 4.5 g/dL (3.5-5.0); Albumin Globulin Ratio 1.3 (1.0-2.8); Alkaline Phosphatase 64 U/L (38-126); Aspartate Aminotransferase 35 IU/L (17-59); Bilirubin Total 1.4 mg/dL (0.2-1.3); Blood Urea Nitrogen 17 mg/dL (9-20); Calcium 9.3 mg/dL (8.4-10.2); Carbon Dioxide 32 mmol/L (22-32); Chloride 101 mmol/L (98-107); Cholesterol 111 mg/dL (140-199); Estimated Glomerular Filt Rate > 60 mL/min (>60); Globulin 3.5 g/dL (1.7-4.1); Glucose 133 mg/dL (80-110); HDL Cholesterol 34 mg/dL (40-60); HEMOLYSIS < 15 (0-50); LDL Cholesterol Calculated 54 mg/dL (<100); Magnesium 1.9 mg/dL (1.6-2.3); Potassium 3.6 mmol/L (3.4-5.1); Sodium 143 mmol/L (137-145); Triglycerides 114 mg/dL (35-150)
== END ==
PROVIDERS: PCP Student in an Organized Health Care Education/Training Program; Referring Provider Specialist; Visit Provider Specialist
DX: I48.20 Chronic atrial fibrillation, unspecified (principal); E78.2 Mixed hyperlipidemia
CPT/HCPCS: 36415; 80053; 80061; 83735

== ENCOUNTER → 2021-09-15 09:50 | Outpatient (CLI) | payer MEDICARE, OTHER, SELFPAY ==
[2021-09-15 11:46] LABS: 585 Gram Check PASS; Prediastolic 94; Presystolic 148; Pulse 78; Site of phlebotomy LAC; Temperature 98.2; Zero Check Sebra Scale PASS
[2021-09-15 11:47] LABS: Dizziness NO; Postdiastolic BP 94; Postsystolic BP 144; Swelling NO; Therapeutic Phleb Comment NO COMMENT
== END ==
PROVIDERS: PCP Student in an Organized Health Care Education/Training Program; Referring Provider Student in an Organized Health Care Education/Training Program; Visit Provider Student in an Organized Health Care Education/Training Program
DX: E83.119 Hemochromatosis, unspecified (principal)
CPT/HCPCS: 99195

== ENCOUNTER → 2021-12-21 13:41 | Outpatient (CLI) | payer MEDICARE, OTHER, SELFPAY ==
[2021-12-21 15:23] LABS: BUN Creatinine Ratio 27.8 (6-22); Blood Urea Nitrogen 22 mg/dL (9-20); Calcium 9.3 mg/dL (8.4-10.2); Carbon Dioxide 33 mmol/L (22-32); Chloride 101 mmol/L (98-107); Estimated Glomerular Filt Rate > 60 mL/min (>60); Glucose 123 mg/dL (80-110); HEMOLYSIS < 15 (0-50); Magnesium 1.9 mg/dL (1.6-2.3); Potassium 4.2 mmol/L (3.4-5.1); Sodium 143 mmol/L (137-145)
== END ==
PROVIDERS: PCP Student in an Organized Health Care Education/Training Program; Referring Provider Specialist; Visit Provider Specialist
DX: I48.20 Chronic atrial fibrillation, unspecified (principal); I10 Essential (primary) hypertension
CPT/HCPCS: 36415; 80048; 83735

== ENCOUNTER → 2022-02-02 13:19 | Outpatient (CLI) | payer MEDICARE, OTHER, SELFPAY ==
[2022-02-02 14:25] LABS: Hematocrit 44.8 % (41-53); Hemoglobin 15.3 g/dL (13.5-17.5); Mean Corpuscular HGB Conc 34.3 % (30-36); Mean Corpuscular Hemoglobin 34.4 PG (26-34); Mean Corpuscular Volume 100.5 fL (80-100); Platelet Count 165 X10^3/uL (150-400); Red Blood Cell Count 4.46 X10^6/uL (4.5-5.9); Red Cell Distribution Width 14.1 % (11.6-14.8); White Blood Cell Count 7.2 X10^3/uL (4.5-11.0)
[2022-02-02 14:48] LABS: HEMOLYSIS < 15 (0-50); Iron 118 ug/dL (49-181)
[2022-02-02 14:58] LABS: Percent Iron Saturation 37 % (20-50); Total Iron Binding Capacity 320 ug/dL (261-462); Transferrin 243 mg/dL (206-381)
[2022-02-02 15:19] LABS: Ferritin 101 ng/mL (18-464)
== END ==
PROVIDERS: PCP Student in an Organized Health Care Education/Training Program; Referring Provider Student in an Organized Health Care Education/Training Program; Visit Provider Student in an Organized Health Care Education/Training Program
DX: E83.119 Hemochromatosis, unspecified (principal)
CPT/HCPCS: 36415; 82728; 83540; 83550; 85027

== ENCOUNTER → 2022-06-28 13:49 | Outpatient (CLI) | payer MEDICARE, OTHER, SELFPAY ==
--- NOTE | 2022-06-28 | DI.ECHO.S_ITS ---
[facility]---------[facility] +---------+ : : [address] [place] : : : : [id number] : : : : Phone: [phone]+ Echocardiogram Report + + :Name: LOVELY GEORGE Study Date: 06/28/2022 Height: 74 in : :[facility] ReadingLocation: Weight: 318 lb : : Gender: Male BSA: 2.6 m2 : :: 1950 Age: 72 yrs BP: 154/88 mmHg: :Reason For Study: PULMONARY HYPERTENSION HR: 80 : :Ordering Physician: BE, : :SHERIE Performed By: ALEXIS PADILLA : :Referring: SHERIE JONES : + + Interpretation Summary The left ventricle is not well seen but grossly appears normal in size and systolic function, and is likely unchanged from the previous study with a gross estimate of the ejection fraction being 55 to 65% without any obvious focal wall motion abnormality. Left ventricular volumes grossly appear unchanged. Diastolic function cannot be assessed because of atrial fibrillation but is likely similar to the previous exam with filling pressures possibly minimally higher. The right ventricle is not well seen but grossly appears to be mild to moderately enlarged with mildly reduced systolic function, similar to the previous study. Right ventricular systolic pressure is estimated at 33 mmHg plus the clinically estimated CVP and may be lower compared to the previous study since the TR jet velocity of 2.9 m/s is lower than the previous 3.3 m/s. While the atria are poorly visualized, there is likely severe biatrial enlargement that grossly appears similar to the previous study. There is probable mild to moderate tricuspid regurgitation that is likely unchanged from the previous exam but no other obvious valvular abnormality. The proximal aorta was unable to be visualized. The patient was in atrial fibrillation at 70 to 95 bpm, similar to the previous exam. Procedure: A two-dimensional transthoracic echocardiogram with color flow and Doppler was performed. The study quality was technically difficult. Comparison is made with the echocardiogram of 02/05/2020. A contrast injection of Definity was performed to improve assessment of LV function. The patient was in atrial fibrillation with heart rates between 70-95 bpm during the exam. Left Ventricle: The left ventricle is not well visualized. The left ventricle is grossly normal size. The estimated left ventricular end diastolic volume is 111 ml. Left ventricular systolic function is normal. Left ventricular ejection fraction is estimated to be 55-65%. There are no obvious focal wall motion abnormalities noted but poor endocardial definition reduces the sensitivity for the detection of such. There has been no significant change since the previous study. Diastolic function could not be accurately assessed due to atrial fibrillation. This is similar compared to the previous study. Right Ventricle: The right ventricle is not well visualized. The right ventricle is mild to moderately dilated. Right ventricular systolic function is mildly reduced. This is likely unchanged compared to the previous study. Atria: The left atrium is not well visualized. Both atria are severely dilated. This is unchanged compared to the previous study. There is no Doppler evidence for an interatrial shunt. Mitral Valve: The mitral valve is not well visualized. The mitral valve is grossly normal. There is no mitral regurgitation noted. Aortic Valve: The aortic valve is not well visualized. The aortic valve opens well. There is no aortic valve stenosis. No aortic regurgitation is present. Tricuspid Valve: The tricuspid valve is not well visualized. There is mild to moderate tricuspid regurgitation. Right ventricular systolic pressure is estimated to be 33 mmHg plus the clinically estimated CVP which cannot be estimated on this exam. This is possibly lower compared to the previous study. Pulmonic Valve: The pulmonic valve is not well visualized. There is no pulmonic valvular regurgitation. Great Vessels: The aortic root is not well visualized but is probably normal size. The ascending aorta could not be visualized. The inferior vena cava was not visualized. Pericardium/ Pleura There is no pericardial effusion. There is no pleural effusion. MMode/2D Measurements & Calculations LVOT diam: 2.0 cm LA A4 area: 43.0 cm2 RA long axis: 8.6 cm LVLs ap4: 7.0 cm LVLd ap2: 9.6 cm LVLs ap2: 7.8 cm Doppler Measurements & Calculations Ao V2 max: 151.0 cm/sec LVOT Max Reagan: 117.0 cm/sec Ao V2 mean: 113.0 cm/sec LV V1 max P.5 mmHg Ao max P.1 mmHg LV V1 VTI: 20.0 cm Ao mean P.0 mmHg ISAAC(I,D): 2.4 cm2 Ao V2 VTI: 25.7 cm ISAAC(V,D): 2.4 cm2 sev ratio: 0.78 ISAAC indexed to BSA (cm^2/m^2): 0.92 MV E max reagan: 129.0 cm/sec TR max reagan: 285.0 cm/sec Med Peak E' Reagan: 7.8 cm/sec TR max P.5 mmHg E/E' med: 16.5 PA V2 max: 90.4 cm/sec Lat Peak E' Reagan: 13.7 cm/sec PA V2 mean: 61.5 cm/sec E/E' lat: 9.4 PA mean P.0 mmHg E/e' average: 12.9 PA pr(Accel): 44.4 mmHg MV dec time: 0.15 sec SV(LVOT): 62.8 ml AV VR_phl: 0.77 ISAAC(VTI)/BSA_phl: 0.92 MV P1/2t-pr_phl: 43.0 msec Reading Physician:05:13 PM
== END ==
PROVIDERS: PCP Student in an Organized Health Care Education/Training Program; Referring Provider Specialist; Visit Provider Physician Assistant Medical
DX: I07.1 Rheumatic tricuspid insufficiency (principal); I27.20 Pulmonary hypertension, unspecified
CPT/HCPCS: 93306; Q9957

== ENCOUNTER → 2022-08-10 08:47 | Outpatient (CLI) | payer MEDICARE, OTHER, SELFPAY ==
[2022-08-10 10:27] LABS: Alanine Aminotransferase 50 IU/L (<50); Albumin 4.2 g/dL (3.5-5.0); Albumin Globulin Ratio 1.4 (1.0-2.8); Alkaline Phosphatase 84 U/L (38-126); Aspartate Aminotransferase 40 IU/L (17-59); BUN Creatinine Ratio 22.7 (6-22); Bilirubin Total 1.5 mg/dL (0.2-1.3); Blood Urea Nitrogen 15 mg/dL (9-20); Carbon Dioxide 30 mmol/L (22-32); Chloride 102 mmol/L (98-107); Estimated Glomerular Filt Rate > 60 mL/min (>60); Glucose 135 mg/dL (80-110); HEMOLYSIS < 15 (0-50); Magnesium 1.9 mg/dL (1.6-2.3); Potassium 3.9 mmol/L (3.4-5.1); Sodium 140 mmol/L (137-145); Total Protein 7.2 g/dL (6.3-8.2)
[2022-08-12 14:58] LABS: Cholesterol, Total 112 mg/dL (100-199); HDL-Cholesterol 37 mg/dL (>39); HDL-Particle (Total) 27.9 umol/L (>=30.5); LDL Particle 663 nmol/L (<1000); LDL Size 19.8 nm (>20.5); LDL-Cholsterol 58 mg/dL (0-99); LP-IR Score 63 (<=45); Small LDL- Particle 475 nmol/L (<=527); Triglycerides 88 mg/dL (0-149)
== END ==
PROVIDERS: PCP Student in an Organized Health Care Education/Training Program; Referring Provider Specialist; Visit Provider Specialist
DX: I48.20 Chronic atrial fibrillation, unspecified (principal); E78.2 Mixed hyperlipidemia
CPT/HCPCS: 36415; 80053; 80061; 83704; 83735

== ENCOUNTER → 2022-09-21 14:15 | Outpatient (CLI) | payer MEDICARE, OTHER, SELFPAY ==
[2022-09-21 15:55] LABS: Add Manual Diff / Slide Review NO; Basophils Absolute Auto 0 /uL (0-100); Basophils Percent Auto 0.5 % (0-2); Eosinophils Absolute Auto 100 /uL (0-450); Eosinophils Percent Auto 0.8 % (2-4); Hematocrit 44.3 % (41-53); Hemoglobin 15.3 g/dL (13.5-17.5); Lymphocytes Absolute Auto 1900 /uL (1100-4500); Lymphocytes Percent Auto 27.9 % (25-40); Mean Corpuscular HGB Conc 34.5 % (30-36); Mean Corpuscular Volume 101.5 fL (80-100); Monocytes Absolute Auto 700 /uL (0-900); Monocytes Percent Auto 9.4 % (3-14); Neutrophils Absolute Auto 4200 /uL (1500-7000); Neutrophils Percent Auto 61.4 % (50-75); Platelet Count 156 X10^3/uL (150-400); Red Blood Cell Count 4.37 X10^6/uL (4.5-5.9); White Blood Cell Count 6.9 X10^3/uL (4.5-11.0)
[2022-09-21 16:22] LABS: Alanine Aminotransferase 42 IU/L (<50); Albumin 4.2 g/dL (3.5-5.0); Albumin Globulin Ratio 1.4 (1.0-2.8); Alkaline Phosphatase 85 U/L (38-126); Aspartate Aminotransferase 35 IU/L (17-59); BUN Creatinine Ratio 23.7 (6-22); Bilirubin Total 1.2 mg/dL (0.2-1.3); Blood Urea Nitrogen 18 mg/dL (9-20); Calcium 9.1 mg/dL (8.4-10.2); Carbon Dioxide 34 mmol/L (22-32); Chloride 99 mmol/L (98-107); Estimated Glomerular Filt Rate > 60 mL/min (>60); Glucose 111 mg/dL (80-110); HEMOLYSIS < 15 (0-50); Magnesium 1.9 mg/dL (1.6-2.3); Potassium 4.1 mmol/L (3.4-5.1); Sodium 140 mmol/L (137-145); Total Protein 7.2 g/dL (6.3-8.2)
[2022-09-22 11:16] LABS: x Labcorp Estim. Avg Glu (eAG) 137 mg/dL (.); x Labcorp Hemoglobin A1c 6.4 % (4.8-5.6)
== END ==
PROVIDERS: PCP Student in an Organized Health Care Education/Training Program; Referring Provider Specialist; Visit Provider Specialist
DX: I10 Essential (primary) hypertension (principal); R79.89 Other specified abnormal findings of blood chemistry; I48.20 Chronic atrial fibrillation, unspecified; R73.9 Hyperglycemia, unspecified
CPT/HCPCS: 36415; 80053; 83036; 83735; 85025

== ENCOUNTER → 2022-12-16 09:03 | Outpatient (CLI) | payer MEDICARE, OTHER, SELFPAY ==
[2022-12-16 10:41] LABS: Hematocrit 43.1 % (41-53); Hemoglobin 14.9 g/dL (13.5-17.5); Mean Corpuscular HGB Conc 34.6 % (30-36); Mean Corpuscular Hemoglobin 34.8 PG (26-34); Mean Corpuscular Volume 100.6 fL (80-100); Platelet Count 147 X10^3/uL (150-400); Red Blood Cell Count 4.28 X10^6/uL (4.5-5.9); Red Cell Distribution Width 14.1 % (11.6-14.8); White Blood Cell Count 7.8 X10^3/uL (4.5-11.0)
[2022-12-16 10:46] LABS: Alanine Aminotransferase 42 IU/L (<50); Albumin 4.2 g/dL (3.5-5.0); Albumin Globulin Ratio 1.4 (1.0-2.8); Alkaline Phosphatase 86 U/L (38-126); Aspartate Aminotransferase 34 IU/L (17-59); BUN Creatinine Ratio 23.5 (6-22); Bilirubin Total 1.6 mg/dL (0.2-1.3); Blood Urea Nitrogen 16 mg/dL (9-20); Calcium 9.2 mg/dL (8.4-10.2); Carbon Dioxide 30 mmol/L (22-32); Chloride 101 mmol/L (98-107); Estimated Glomerular Filt Rate > 60 mL/min (>60); Glucose 126 mg/dL (80-110); HEMOLYSIS < 15 (0-50); Potassium 3.6 mmol/L (3.4-5.1); Sodium 139 mmol/L (137-145); Total Protein 7.2 g/dL (6.3-8.2)
[2022-12-16 11:24] LABS: Prostate Specific Antigen Scrn 0.953 ng/mL (0.1-4.0)
[2022-12-16 12:42] LABS: Hemoglobin A1C% w Est Avg Glu 5.9 % (4.0-6.0)
== END ==
PROVIDERS: PCP Pediatrics; Referring Provider Specialist; Visit Provider Specialist
DX: Z12.5 Encounter for screening for malignant neoplasm of prostate (principal); I48.20 Chronic atrial fibrillation, unspecified; R73.9 Hyperglycemia, unspecified; I10 Essential (primary) hypertension
CPT/HCPCS: 36415; 80053; 83036; 83735; 85027; G0103

== ENCOUNTER → 2023-01-06 11:05 | Outpatient (CLI) | payer MEDICARE, OTHER, SELFPAY ==
[2023-01-06 11:45] LABS: Alanine Aminotransferase 38 IU/L (<50); Albumin 4.4 g/dL (3.5-5.0); Albumin Globulin Ratio 1.4 (1.0-2.8); Alkaline Phosphatase 77 U/L (38-126); Aspartate Aminotransferase 33 IU/L (17-59); BUN Creatinine Ratio 28.4 (6-22); Bilirubin Total 1.3 mg/dL (0.2-1.3); Blood Urea Nitrogen 19 mg/dL (9-20); Calcium 9.6 mg/dL (8.4-10.2); Carbon Dioxide 34 mmol/L (22-32); Chloride 99 mmol/L (98-107); Estimated Glomerular Filt Rate > 60 mL/min (>60); Globulin 3.1 g/dL (1.7-4.1); Glucose 180 mg/dL (80-110); HEMOLYSIS < 15 (0-50); Potassium 4.1 mmol/L (3.4-5.1); Sodium 140 mmol/L (137-145); Total Protein 7.5 g/dL (6.3-8.2)
[2023-01-08 15:36] LABS: Cholesterol, Total 113 mg/dL (100-199); HDL-Cholesterol 36 mg/dL (>39); HDL-Particle (Total) 25.1 umol/L (>=30.5); LDL Particle 780 nmol/L (<1000); LDL Size 20.5 nm (>20.5); LDL-Cholsterol 57 mg/dL (0-99); LP-IR Score 73 (<=45); Small LDL- Particle 321 nmol/L (<=527); Triglycerides 110 mg/dL (0-149)
== END ==
PROVIDERS: PCP Pediatrics; Referring Provider Specialist; Visit Provider Specialist
DX: I10 Essential (primary) hypertension (principal); E78.2 Mixed hyperlipidemia; I48.20 Chronic atrial fibrillation, unspecified
CPT/HCPCS: 36415; 80053; 80061; 83704; 83735

== ENCOUNTER → 2023-05-10 09:05 | Outpatient (CLI) | payer MEDICARE, OTHER, SELFPAY ==
[2023-05-10 10:40] LABS: Hemoglobin A1C% w Est Avg Glu 6.2 % (4.0-6.0)
[2023-05-10 11:04] LABS: Magnesium 2.1 mg/dL (1.6-2.3)
[2023-05-10 11:13] LABS: Alanine Aminotransferase 66 IU/L (<50); Albumin 4.3 g/dL (3.5-5.0); Albumin Globulin Ratio 1.3 (1.0-2.8); Alkaline Phosphatase 93 U/L (38-126); Aspartate Aminotransferase 56 IU/L (17-59); BUN Creatinine Ratio 26.7 (6-22); Bilirubin Total 1.1 mg/dL (0.2-1.3); Blood Urea Nitrogen 16 mg/dL (9-20); Calcium 9.3 mg/dL (8.4-10.2); Carbon Dioxide 31 mmol/L (22-32); Chloride 102 mmol/L (98-107); Estimated Glomerular Filt Rate > 60 mL/min (>60); Globulin 3.3 g/dL (1.7-4.1); Glucose 149 mg/dL (80-110); HEMOLYSIS < 15 (0-50); Potassium 3.9 mmol/L (3.4-5.1); Sodium 141 mmol/L (137-145); Total Protein 7.6 g/dL (6.3-8.2); Uric Acid 5.6 mg/dL (3.5-8.5)
[2023-05-13 08:42] LABS: Cholesterol, Total 119 mg/dL (100-199); HDL-Cholesterol 37 mg/dL (>39); HDL-Particle (Total) 28.2 umol/L (>=30.5); Historical Reading Comment: (.); LDL Particle 724 nmol/L (<1000); LDL-Cholsterol 60 mg/dL (0-99); LP-IR Score 59 (<=45); Small LDL- Particle 560 nmol/L (<=527); Triglycerides 125 mg/dL (0-149)
== END ==
LOC: LAB 09:07
PROVIDERS: Family Medicine; PCP Pediatrics; Referring Provider Specialist; Visit Provider Specialist
DX: I10 Essential (primary) hypertension (principal); E78.2 Mixed hyperlipidemia; I48.20 Chronic atrial fibrillation, unspecified; M10.9 Gout, unspecified
CPT/HCPCS: 36415; 80053; 80061; 83036; 83704; 83735; 84550

== ENCOUNTER → 2023-11-17 09:26 | Outpatient (CLI) | payer MEDICARE, OTHER, SELFPAY ==
[2023-11-17 10:10] LABS: Add Manual Diff / Slide Review NO; Basophils Absolute Auto 100 /uL (0-100); Basophils Percent Auto 0.7 % (0-2); Eosinophils Absolute Auto 100 /uL (0-450); Eosinophils Percent Auto 0.8 % (2-4); Hematocrit 45.1 % (41-53); Hemoglobin 15.3 g/dL (13.5-17.5); Lymphocytes Absolute Auto 2600 /uL (1100-4500); Lymphocytes Percent Auto 29.8 % (25-40); Mean Corpuscular Hemoglobin 34.7 PG (26-34); Monocytes Absolute Auto 700 /uL (0-900); Monocytes Percent Auto 8.2 % (3-14); Neutrophils Absolute Auto 5300 /uL (1500-7000); Neutrophils Percent Auto 60.5 % (50-75); Platelet Count 158 X10^3/uL (150-400); Red Blood Cell Count 4.42 X10^6/uL (4.5-5.9); Red Cell Distribution Width 14.5 % (11.6-14.8); White Blood Cell Count 8.8 X10^3/uL (4.5-11.0)
[2023-11-17 10:34] LABS: Alanine Aminotransferase 43 IU/L (<50); Albumin 4.2 g/dL (3.5-5.0); Albumin Globulin Ratio 1.3 (1.0-2.8); Alkaline Phosphatase 90 U/L (38-126); Aspartate Aminotransferase 38 IU/L (17-59); BUN Creatinine Ratio 26.5 (6-22); Bilirubin Total 1.2 mg/dL (0.2-1.3); Blood Urea Nitrogen 18 mg/dL (9-20); Calcium 9.5 mg/dL (8.4-10.2); Carbon Dioxide 31 mmol/L (22-32); Chloride 102 mmol/L (98-107); Estimated Glomerular Filt Rate > 60 mL/min (>60); Globulin 3.2 g/dL (1.7-4.1); Glucose 140 mg/dL (80-110); HEMOLYSIS < 15 (0-50); Magnesium 2.1 mg/dL (1.6-2.3); Potassium 4.2 mmol/L (3.4-5.1); Sodium 139 mmol/L (137-145); Total Protein 7.4 g/dL (6.3-8.2)
== END ==
PROVIDERS: PCP Family Medicine; Referring Provider Specialist; Visit Provider Specialist
DX: E78.2 Mixed hyperlipidemia (principal); R79.89 Other specified abnormal findings of blood chemistry; I48.20 Chronic atrial fibrillation, unspecified
CPT/HCPCS: 36415; 80053; 80061; 83704; 83735; 85025

== ENCOUNTER → 2024-01-03 14:29 | Outpatient (CLI) | payer MEDICARE, OTHER, SELFPAY ==
[2024-01-03 15:34] LABS: Hemoglobin A1C% w Est Avg Glu 6.3 % (4.0-6.0)
[2024-01-03 16:08] LABS: Alanine Aminotransferase 44 IU/L (<50); Albumin 4.4 g/dL (3.5-5.0); Albumin Globulin Ratio 1.4 (1.0-2.8); Alkaline Phosphatase 97 U/L (38-126); Aspartate Aminotransferase 43 IU/L (17-59); BUN Creatinine Ratio 27.8 (6-22); Bilirubin Total 1.1 mg/dL (0.2-1.3); Blood Urea Nitrogen 22 mg/dL (9-20); Calcium 9.7 mg/dL (8.4-10.2); Carbon Dioxide 31 mmol/L (22-32); Chloride 101 mmol/L (98-107); Estimated Glomerular Filt Rate > 60 mL/min (>60); Globulin 3.1 g/dL (1.7-4.1); Glucose 147 mg/dL (80-110); HEMOLYSIS < 15 (0-50); Potassium 4.1 mmol/L (3.4-5.1); Sodium 141 mmol/L (137-145); Total Protein 7.5 g/dL (6.3-8.2); Uric Acid 6.7 mg/dL (3.5-8.5)
== END ==
PROVIDERS: PCP Family Medicine; Referring Provider Family Medicine; Visit Provider Family Medicine
DX: R73.03 Prediabetes (principal); E78.2 Mixed hyperlipidemia; I10 Essential (primary) hypertension; M10.9 Gout, unspecified
CPT/HCPCS: 36415; 80053; 83036; 84550

== ENCOUNTER → 2024-06-07 13:43 | Outpatient (CLI) | payer MEDICARE, OTHER, SELFPAY ==
--- NOTE | 2024-06-07 13:46 | DI.ECHO.S_ITS ---
[facility] +---------+ [facility] : : [address] : : [place] : : [id number] : : Phone: [phone] Echocardiogram Report + + :Name: LOVELY GEORGE Study Date: 06/07/2024 Height: 73 in : :[facility] ReadingLocation: Weight: 330 lb : : Gender: Male BSA: 2.7 m2 : :: 1950 Age: 74 yrs BP: 154/92 mmHg: :Reason For Study: PULMONARY HYPERTENSION : :Ordering Physician: EB, : :SHERIE Performed By: Wes Rondon : :Referring: SHERIE LR : + + Interpretation Summary While the left ventricle is not well-seen, systolic function grossly appears normal with an estimated ejection fraction of 55 to 65% with considerable [id number] variability and no obvious focal wall motion abnormality or change from the previous exam. There is probable mild LVH with normal left ventricular size. Diastolic function cannot be assessed because of atrial fibrillation. The right ventricle is poorly seen but likely moderately enlarged with probable moderate hypokinesis and appears somewhat larger and less dynamic compared to the previous study although was poorly seen on the previous exam as well. Right ventricular systolic pressure is estimated to be as high as 69 mmHg with a CVP of 8 mmHg, although there is considerable [id number] variability. While higher compared to the previous study, the previous exam was compromised by poor Doppler images. There is severe biatrial enlargement. The atria were not adequately visualized on the previous study for comparison. There is probable mild to moderate tricuspid regurgitation that grossly appears unchanged from the previous study. There is no other obvious valvular abnormality. The proximal aorta is likely mild to moderately enlarged. A trivial to small pericardial effusion is seen there was not obvious on the previous exam. The patient was in atrial fibrillation at 75 to 95 bpm, similar to the previous study. Procedure: A two-dimensional transthoracic echocardiogram with color flow and Doppler was performed. A contrast injection of Definity was performed to improve assessment of LV function. The study quality was technically difficult. Comparison is made with the echocardiogram of 06/28/2022. The patient was in atrial fibrillation with heart rates between 75-95 bpm during the exam. This is unchanged compared to the previous study. Left Ventricle: The left ventricle is normal in size. Left ventricular wall thickness is mildly increased. There is no ventricular septal defect visualized. Left ventricular systolic function is probably normal. Left ventricular ejection fraction is estimated to be likely around 55 to 65% with considerable ikox-tx-[id number] variability although visualization is suboptimal. There are no obvious focal wall motion abnormalities noted but poor endocardial definition reduces the sensitivity for the detection of such. There has been no significant change since the previous study. Diastolic function could not be accurately assessed due to atrial fibrillation. Right Ventricle: The right ventricle is not well visualized. The right ventricle is moderately dilated. Right ventricular systolic function is moderately reduced. This is grossly larger and less dynamic, although poorly seen, compared to the previous study. Atria: Both atria are severely dilated. The atria were very poorly seen on the previous study, preventing comparison. There is no Doppler evidence for an atrial septal defect. Mitral Valve: There is mild mitral annular calcification. The mitral valve leaflets appear mildly thickened, but open well. There is trace mitral regurgitation. Aortic Valve: The aortic valve is not well visualized. The aortic valve is grossly normal. The aortic valve opens well. No aortic regurgitation is present. Tricuspid Valve: The tricuspid valve is not well visualized, but is grossly normal. There is mild to moderate tricuspid regurgitation. This is unchanged compared to the previous study. The right ventricular systolic pressure is estimated to be at least 69 mmHg based on an estimated right atrial pressure of 8 mm Hg. Compared to the prior echo exam, there has been an increase in the severity of pulmonary hypertension. Pulmonic Valve: The pulmonic valve leaflets are thin and pliable; valve motion is normal. There is trace pulmonic regurgitation. Great Vessels: The aortic root is normal size. The ascending aorta is mild- moderately enlarged. The pulmonary is not well visualized. The IVC is dilated (diameter is greater than 2.1 cm) yet it collapses greater than 50% with a sniff. This suggests a right atrial pressure of 8 mm Hg. Pericardium/ Pleura There is a trivial to small pericardial effusion noted. There is no pleural effusion. MMode/2D Measurements & Calculations LVIDd: 5.3 cm LVOT diam: 2.2 cm LVIDs: 3.7 cm Ao root diam: 3.6 cm FS: 29.5 % asc Aorta Diam: 4.2 cm EPSS: 1.1 cm IVSd: 1.4 cm LVPWd: 1.4 cm LV pires. diameter/BSA (cm/m^2): 2.0 LV sys. diameter/BSA (cm/m^2): 1.4 LA A2 area: 31.9 cm2 RA long axis: 8.8 cm LA A4 area: 38.7 cm2 RA area: 49.9 cm2 LA length (vol): 8.2 cm RA vol: 239.6 ml LA vol: 127.6 ml RA : 90.0 ml/m2 LA vol index: 47.9 ml/m2 IVC diam: 3.1 cm RVD1 (basal): 5.1 cm RVD2 (mid): 4.7 cm TAPSE: 2.5 cm Doppler Measurements & Calculations Ao V2 max: 134.2 cm/sec LVOT Max Reagan: 66.1 cm/sec Ao V2 mean: 91.9 cm/sec LV V1 max P.7 mmHg Ao max P.2 mmHg LV V1 VTI: 13.6 cm Ao mean P.8 mmHg ISAAC(I,D): 2.2 cm2 Ao V2 VTI: 24.5 cm ISAAC(V,D): 1.9 cm2 sev ratio: 0.55 ISAAC indexed to BSA (cm^2/m^2): 0.81 MV E max reagan: 114.8 cm/sec TR max reagan: 390.8 cm/sec MV A max reagan: 26.8 cm/sec TR max P.1 mmHg MV E/A: 4.3 PA V2 max: 86.6 cm/sec MV dec time: 0.15 sec PA V2 mean: 57.0 cm/sec PA mean P.5 mmHg PA pr(Accel): 49.9 mmHg SV(LVOT): 52.9 ml Reading Physician:04:45 PM
== END ==
LOC: ECHO 13:45
PROVIDERS: PCP Family Medicine; Referring Provider Specialist; Visit Provider Specialist
DX: I08.1 Rheumatic disorders of both mitral and tricuspid valves (principal); I27.20 Pulmonary hypertension, unspecified; I77.89 Other specified disorders of arteries and arterioles
CPT/HCPCS: C8929; Q9957

== ENCOUNTER → 2024-06-20 08:16 | Outpatient (CLI) | payer MEDICARE, OTHER, SELFPAY ==
[2024-06-20 08:59] LABS: Hematocrit 43.6 % (41-53); Hemoglobin 14.6 g/dL (13.5-17.5); Mean Corpuscular HGB Conc 33.5 % (30-36); Mean Corpuscular Hemoglobin 34.1 PG (26-34); Mean Corpuscular Volume 101.8 fL (80-100); Platelet Count 162 X10^3/uL (150-400); Red Blood Cell Count 4.28 X10^6/uL (4.5-5.9); Red Cell Distribution Width 14.3 % (11.6-14.8); White Blood Cell Count 9.5 X10^3/uL (4.5-11.0)
[2024-06-20 09:21] LABS: Alanine Aminotransferase 46 IU/L (<50); Albumin 4.3 g/dL (3.5-5.0); Albumin Globulin Ratio 1.6 (1.0-2.8); Alkaline Phosphatase 141 U/L (38-126); Aspartate Aminotransferase 36 IU/L (17-59); BUN Creatinine Ratio 22.8 (6-22); Bilirubin Total 1.3 mg/dL (0.2-1.3); Blood Urea Nitrogen 18 mg/dL (9-20); Carbon Dioxide 31 mmol/L (22-32); Chloride 103 mmol/L (98-107); Cholesterol 95 mg/dL (140-199); Estimated Glomerular Filt Rate > 60 mL/min (>60); Globulin 2.7 g/dL (1.7-4.1); Glucose 136 mg/dL (80-110); HDL Cholesterol 34 mg/dL (40-60); HEMOLYSIS < 15 (0-50); LDL Cholesterol Calculated 46 mg/dL (<100); Potassium 4.1 mmol/L (3.4-5.1); Sodium 141 mmol/L (137-145); Triglycerides 73 mg/dL (35-150)
== END ==
PROVIDERS: PCP Family Medicine; Referring Provider Specialist; Visit Provider Specialist
DX: I48.20 Chronic atrial fibrillation, unspecified (principal); E78.2 Mixed hyperlipidemia
CPT/HCPCS: 36415; 80053; 80061; 83735; 85027

== ENCOUNTER → 2024-07-11 16:08 | Outpatient (CLI) | payer MEDICARE, OTHER, SELFPAY ==
[2024-07-11 17:12] LABS: Hematocrit 45.4 % (41-53); Hemoglobin 15.3 g/dL (13.5-17.5); Mean Corpuscular HGB Conc 33.6 % (30-36); Mean Corpuscular Hemoglobin 34.3 PG (26-34); Mean Corpuscular Volume 101.9 fL (80-100); Platelet Count 147 X10^3/uL (150-400); Red Blood Cell Count 4.45 X10^6/uL (4.5-5.9); Red Cell Distribution Width 14.2 % (11.6-14.8); White Blood Cell Count 10.7 X10^3/uL (4.5-11.0)
[2024-07-11 17:33] LABS: Alanine Aminotransferase 31 IU/L (<50); Albumin 4.5 g/dL (3.5-5.0); Albumin Globulin Ratio 1.6 (1.0-2.8); Alkaline Phosphatase 110 U/L (38-126); Aspartate Aminotransferase 36 IU/L (17-59); BUN Creatinine Ratio 24.5 (6-22); Blood Urea Nitrogen 23 mg/dL (9-20); Calcium 9.7 mg/dL (8.4-10.2); Carbon Dioxide 30 mmol/L (22-32); Chloride 102 mmol/L (98-107); Cholesterol 126 mg/dL (140-199); Estimated Glomerular Filt Rate > 60 mL/min (>60); Globulin 2.9 g/dL (1.7-4.1); Glucose 129 mg/dL (80-110); HDL Cholesterol 38 mg/dL (40-60); HEMOLYSIS < 15 (0-50); LDL Cholesterol Calculated 41 mg/dL (<100); Magnesium 1.8 mg/dL (1.6-2.3); Potassium 4.4 mmol/L (3.4-5.1); Sodium 142 mmol/L (137-145); Total Protein 7.4 g/dL (6.3-8.2); Triglycerides 236 mg/dL (35-150)
== END ==
PROVIDERS: PCP Family Medicine; Referring Provider Specialist; Visit Provider Specialist
DX: E78.2 Mixed hyperlipidemia (principal); I48.20 Chronic atrial fibrillation, unspecified
CPT/HCPCS: 36415; 80053; 80061; 83735; 85027

== ENCOUNTER → 2024-11-06 09:14 | Outpatient (CLI) | payer MEDICARE, OTHER, SELFPAY ==
--- NOTE | 2024-11-06 09:16 | DI.ECHO.S_ITS ---
[place] [facility] +---------+ Hospital : : [address] : : [place] : : [id number] : : Phone: [phone] Echocardiogram Report + + :Name: LOVELY GEORGE Study Date: 11/06/2024 Height: 74 in : :[facility] ReadingLocation: Weight: 330 lb : : Gender: Male BSA: 2.7 m2 : :: 1950 Age: 74 yrs BP: 148/88 mmHg: :Reason For Study: HYPERTENSION : :Ordering Physician: BE, : :SHERIE Performed By: Wes Rondon : :Referring: SHERIE LR : + + Interpretation Summary Left ventricular systolic function is likely normal with a gross estimate of the ejection fraction being 55 to 65% with a mild dyssynchronous contraction pattern but no obvious focal wall motion abnormality, although sensitivity limited because of fairly poor quality images. There has been no apparent change since the previous exam. Left ventricular volumes remain slightly increased at 126 mL and there is probable mild to moderate LVH. Diastolic function is challenging to assess but the E/E' ratios are normal suggesting the absence of significantly elevated left-sided filling pressures. The right ventricle is not well-seen but remains moderately enlarged with probable moderate hypokinesis and grossly unchanged from the previous study. Right ventricular systolic pressure is estimated at 65 mmHg with a CVP of 8 mmHg and is likely unchanged from the previous exam. There continues to be moderate left atrial enlargement and severe right atrial enlargement that remain unchanged. There is mild tricuspid regurgitation that is unchanged to slightly less prominent compared to the previous study. There is no other significant valvular abnormality although the aortic valve is not well-visualized. The proximal aorta remains mild to moderately enlarged but grossly unchanged. There continues to be a small pericardial effusion posteriorly that remains unchanged. The patient was in atrial fibrillation at 65-95 bpm, similar to the previous exam. Procedure: A two-dimensional transthoracic echocardiogram with color flow and Doppler was performed. A contrast injection of Definity was performed to improve assessment of LV function. The study quality was technically difficult. Comparison is made with the echocardiogram of 06/07/2024. The patient was in atrial fibrillation with heart rates between 65-106 bpm during the exam. Left Ventricle: The left ventricle is borderline dilated. The estimated left ventricular end diastolic volume is 126 ml. There is mild-moderate concentric left ventricular hypertrophy. There is no ventricular septal defect visualized. Left ventricular ejection fraction is estimated to be 55-65%. There is a mild dyssynchronous contraction pattern, consistent with a conduction abnormality. There are no obvious focal wall motion abnormalities noted but poor endocardial definition reduces the sensitivity for the detection of such. This is grossly appears unchanged compared to the previous study. Diastolic function could not be accurately assessed due to atrial fibrillation. The E/E' ratios are normal suggesting the absence of any elevation of left-sided filling pressures. Right Ventricle: The right ventricle is not well visualized. The right ventricle is moderately dilated. Right ventricular systolic function is mild to moderately reduced. This is grossly unchanged compared to the previous study. Atria: The left atrium is moderately dilated. The right atrium is severely dilated. This is unchanged compared to the previous study. There is no Doppler evidence for an interatrial shunt. Mitral Valve: There is mild mitral annular calcification. The mitral valve leaflets appear mildly thickened. There is trace mitral regurgitation. This is unchanged compared to the previous study. Aortic Valve: The aortic valve is not well visualized. The aortic valve is mildly calcified. The aortic valve opens well. There is no hemodynamically significant valvular aortic stenosis. No aortic regurgitation is present. Tricuspid Valve: The tricuspid valve leaflets are thin and pliable. There is mild tricuspid regurgitation. This is slightly less prominent compared to the previous study. The right ventricular systolic pressure is estimated to be at least 65 mmHg based on an estimated right atrial pressure of 8 mm Hg. This is unchanged compared to the previous study. Pulmonic Valve: The pulmonic valve is not well visualized. There is no pulmonic valvular regurgitation. Great Vessels: The aortic root is mildly dilated. The ascending aorta is mildly enlarged. The ascending aorta could not be visualized. This is grossly unchanged compared to the previous study. The pulmonary is not well visualized. The IVC is dilated (diameter is greater than 2.1 cm) yet it collapses greater than 50% with a sniff. This suggests a right atrial pressure of 8 mm Hg. Pericardium/ Pleura There is a small pericardial effusion noted. This is unchanged compared to the previous study. There is no pleural effusion. MMode/2D Measurements & Calculations LVIDd: 4.9 cm LVOT diam: 2.4 cm LVIDs: 3.4 cm Ao root diam: 4.0 cm FS: 31.2 % asc Aorta Diam: 4.0 cm EPSS: 1.5 cm IVSd: 1.4 cm LVPWd: 1.3 cm LV pires. diameter/BSA (cm/m^2): 1.8 LV sys. diameter/BSA (cm/m^2): 1.3 LA A2 area: 32.2 cm2 RA long axis: 8.5 cm LA A4 area: 41.6 cm2 RA area: 48.2 cm2 LA length (vol): 8.5 cm RA vol: 233.2 ml LA vol: 133.1 ml RA : 86.7 ml/m2 LA vol index: 49.5 ml/m2 IVC diam: 3.0 cm RVD1 (basal): 5.4 cm RVD2 (mid): 4.4 cm TAPSE: 1.9 cm Doppler Measurements & Calculations Ao V2 max: 153.3 cm/sec LVOT Max Reagan: 96.3 cm/sec Ao V2 mean: 110.9 cm/sec LV V1 max P.7 mmHg Ao max P.4 mmHg LV V1 VTI: 18.3 cm Ao mean P.4 mmHg ISAAC(I,D): 2.8 cm2 Ao V2 VTI: 30.4 cm ISAAC(V,D): 2.9 cm2 sev ratio: 0.60 ISAAC indexed to BSA (cm^2/m^2): 1.0 MV E max reagan: 111.3 cm/sec TR max reagan: 377.5 cm/sec MV A max reagan: 24.8 cm/sec TR max P.0 mmHg MV E/A: 4.5 PA V2 max: 125.3 cm/sec Med Peak E' Reagan: 9.5 cm/sec PA V2 mean: 73.7 cm/sec E/E' med: 11.8 PA mean P.5 mmHg Lat Peak E' Reagan: 14.0 cm/sec PA pr(Accel): 60.2 mmHg E/E' lat: 7.9 E/e' average: 9.9 MV dec time: 0.16 sec SV(LVOT): 85.0 ml Reading Physician:12:45 PM
== END ==
PROVIDERS: PCP Family Medicine; Referring Provider Specialist; Visit Provider Specialist
DX: I08.1 Rheumatic disorders of both mitral and tricuspid valves (principal); I27.20 Pulmonary hypertension, unspecified; I48.91 Unspecified atrial fibrillation; I31.39 Other pericardial effusion (noninflammatory); I77.89 Other specified disorders of arteries and arterioles; I77.810 Thoracic aortic ectasia
CPT/HCPCS: C8929; Q9957

== ENCOUNTER → 2024-11-14 13:55 | Outpatient (CLI) | payer MEDICARE, OTHER, SELFPAY ==
[2024-11-14 14:55] LABS: Add Manual Diff / Slide Review NO; Hematocrit 44.6 % (41-53); Hemoglobin 15.0 g/dL (13.5-17.5); Lymphocytes Absolute Auto 2700 /uL (1100-4500); Mean Corpuscular HGB Conc 33.6 % (30-36); Mean Corpuscular Hemoglobin 34.4 PG (26-34); Mean Corpuscular Volume 102.4 fL (80-100); Platelet Count 158 X10^3/uL (150-400)
[2024-11-14 15:18] LABS: Alanine Aminotransferase 29 IU/L (<50); Albumin 4.5 g/dL (3.5-5.0); Albumin Globulin Ratio 1.5 (1.0-2.8); Alkaline Phosphatase 188 U/L (38-126); Blood Urea Nitrogen 19 mg/dL (9-20); Calcium 9.4 mg/dL (8.4-10.2); Carbon Dioxide 33 mmol/L (22-32); Chloride 96 mmol/L (98-107); Estimated Glomerular Filt Rate > 60 mL/min (>60); Globulin 3.1 g/dL (1.7-4.1); Glucose 97 mg/dL (70-99); HEMOLYSIS < 15 (0-50); Potassium 4.2 mmol/L (3.4-5.1); Sodium 139 mmol/L (137-145); Total Protein 7.6 g/dL (6.3-8.2)
== END ==
PROVIDERS: PCP Family Medicine; Referring Provider Specialist; Visit Provider Specialist
DX: I48.20 Chronic atrial fibrillation, unspecified (principal); I27.20 Pulmonary hypertension, unspecified
CPT/HCPCS: 36415; 80053; 85025

== ENCOUNTER 2025-03-18 15:07 | Emergency (ER) | payer MEDICARE, OTHER, SELFPAY ==
[2025-03-18 15:33] VITALS: BP 129/86; PULSE 93; RESP 18; TEMP 36.1; O2SAT 96; BMI 37.2
--- NOTE | 2025-03-18 15:44 | ED.GENADULT ---
HPI - General Adult General Chief complaint: Skin/Abscess/Foreign Body Stated complaint: PC ref, jundiced Time Seen by Provider: 03/18/25 15:43 History of Present Illness HPI narrative: 75-year-old gentleman with a history of hypertension hyperlipidemia hepatitis-C that has been treated. His family is concerned that he has been jaundice I was instructed by his primary care provider to come in today. He presents alert and well and significantly jaundiced Related Data Home Medications ?Medication ?Instructions ?Recorded ?Confirmed Respironics DreamStation BIPAP #1 ea 07/26/18 01/03/24 atorvastatin 20 mg tablet 20 mg PO DAILY 07/18/20 01/03/24 cholecalciferol (vitamin D3) 50 50 mcg PO DAILY 07/18/20 01/03/24 mcg (2,000 unit) capsule metoprolol succinate 50 mg 50 mg PO BID 09/21/21 01/03/24 tablet,extended release 24 hr hydrochlorothiazide 12.5 mg capsule 12.5 mg PO BID 01/03/24 01/03/24 potassium chloride 20 mEq 60 meq PO BID 01/03/24 tablet,extended release(part/cryst) (Klor-Con M) Previous Rx's ?Medication ?Instructions ?Recorded apixaban 5 mg tablet (Eliquis) 5 mg PO BID #180 tabs 07/13/19 lisinopril 20 mg tablet 20 mg PO DAILY #90 tabs 07/18/19 colchicine 0.6 mg tablet 0.6 mg PO BID PRN gout #20 tabs 03/14/23 triamcinolone acetonide 0.1 % 1 applic topical BIDP PRN Rash #30 05/24/23 topical cream grams amlodipine 5 mg tablet 5 mg PO BID #180 tabs 01/03/24 allopurinol 300 mg tablet 300 mg PO DAILY #90 tabs 12/17/24 tamsulosin 0.4 mg capsule 0.4 mg PO DAILY #90 caps 12/17/24 Allergies Allergy/AdvReac Type Severity Reaction Status Date / Time No Known Drug Allergies Allergy Verified 03/18/25 15:33 Patient History Medical History Obesity (BMI 30-39.9) Obstructive sleep apnea (01/21/18) Substance abuse Hemochromatosis (~1999) Hepatitis C (~1994) Atrial fibrillation (2012) Hypertension IBS (irritable bowel syndrome) Chicken pox Measles Gout Cholecystitis (06/02/17) Duodenitis Surgical History Anesthesia History of laparoscopic cholecystectomy (07/13/17) History of colonoscopy (05/17/17) History of tonsillectomy Family History Brother Hypertension Heart attack Father Hypertension Diabetes mellitus Alzheimer's disease Cancer Mother Hypertension Social History marital status: details: to Belai household members: spouse lives independently: Yes caregiver/support person: No housing: house occupational status: previously employed Smoking Status: Former smoker alcohol intake: never substance use type: does not use Exam Initial Vital Signs Initial Vital Signs: Vital Signs Temperature 97.0 F L 03/18/25 15:33 Pulse Rate 93 H 03/18/25 15:33 Respiratory Rate 18 03/18/25 15:33 Blood Pressure 129/86 03/18/25 15:33 Pulse Oximetry 96 03/18/25 15:33 Oxygen Delivery Method Room Air 03/18/25 15:33 General: Significantly jaundiced but alert, appropriate in no obvious pain HEENT: Moist mucous membranes, anicteric sclera with reactive pupils, Respiratory: Lungs are clear to auscultation, no wheezing no rales no rhonchi. Full and symmetrical air movement Cardiac: Regular rate and rhythm no murmurs no bruits Abdomen: Soft, body habitus makes realistic evaluation of hepatosplenomegaly difficult. Skin: Warm and dry, significant jaundice Neurologic: Grossly neurologically intact with no obvious asymmetries or abnormalities Extremities: No trauma, no lower extremity edema Psych: Cooperative, appropriate insight and affect Course Orders Ordered: ED Orders 03/18/25 15:42 Complete Blood Count AUTO DIFF Stat Comprehensive Metabolic Panel Stat Lactate (Lactic Acid) Stat Lipase Stat Magnesium Stat PTT Partial Thromboplastin Sundar Stat Procalcitonin Stat Prothrombin Time INR Stat 03/18/25 15:46 CT abdomen pelvis w con Stat 03/18/25 15:47 XR chest 1V Stat 03/18/25 16:12 Ictotest Urine Stat Urinalysis and Microscopic Stat Vital Signs Vital signs: Vital Signs - 8 hr 03/18/25 23:56 Pulse Rate 83 Respiratory Rate 23 Blood Pressure 173/96 H Pulse Oximetry 95 Oxygen Delivery Method Room Air Medical Decision Making Lab Data 03/18/25 15:42 03/18/25 15:42 Labs: Lab Results 03/18/25 03/18/25 Range/Units 15:42 16:12 WBC 10.9 (4.5-11.0) X10^3/uL RBC 4.29 L (4.5-5.9) X10^6/uL Hgb 14.9 (13.5-17.5) g/dL Hct 43.7 (41-53) % MCV 101.8 H (80-100) fL MCH 34.8 H (26-34) PG MCHC 34.1 (30-36) % RDW 15.6 H (11.6-14.8) % Plt Count 176 (150-400) X10^3/uL Neut % (Auto) 68.6 (50-75) % Lymph % (Auto) 18.8 L (25-40) % [place] % (Auto) 11.1 (3-14) % Eos % (Auto) 0.5 L (2-4) % Baso % (Auto) 1.0 (0-2) % Neut # (Auto) 7500 H (8089-9660) /uL Lymph # (Auto) 2000 (2724-9037) /uL [place] # (Auto) 1200 H (0-900) /uL Eos # (Auto) 100 (0-450) /uL Baso # (Auto) 100 (0-100) /uL PT 18.1 H (9.4-12.5) SECONDS INR 1.6 H (0.9-1.3) APTT 40 H (25.1-36.5) SECONDS Sodium 140 (137-145) mmol/L Potassium 4.3 (3.4-5.1) mmol/L Chloride 100 (98-107) mmol/L Carbon Dioxide 27 (22-32) mmol/L BUN 22 H (9-20) mg/dL Creatinine 0.97 (0.66-1.25) mg/dL Estimated GFR > 60 (>60) mL/min BUN/Creatinine Ratio 22.7 H (6-22) Glucose 131 H (70-99) mg/dL Lactate 1.2 (0.7-2.1) mmol/L Calcium 9.5 (8.4-10.2) mg/dL Magnesium 2.0 (1.6-2.3) mg/dL Total Bilirubin 13.9 H (0.2-1.3) mg/dL AST 130 H (17-59) IU/L ALT 124 H (<50) IU/L Alkaline Phosphatase 567 H (38-126) U/L Total Protein 8.9 H (6.3-8.2) g/dL Albumin 4.5 (3.5-5.0) g/dL Globulin 4.4 H (1.7-4.1) g/dL Albumin/Globulin Ratio 1.0 (1.0-2.8) Lipase 61 (23-300) U/L Procalcitonin 0.501 H (<0.5) ng/mL Urine Color Yellow Urine Appearance Clear Urine pH 5.5 (4.5-8.0) Ur Specific [place] 1.010 (1.000-1.035) Urine Protein Negative (Negative) Urine Glucose (UA) Negative (Negative) g/dL Urine Ketones Negative (NEGATIVE) Urine Occult Blood Negative (Negative) Urine Nitrate Negative (Negative) Urine Bilirubin 3+ H (NEGATIVE) Ur Bilirubin Confirm Positive H (Negative) Urine Urobilinogen 2.0 H (0.2) E.U./dL Ur Leukocyte Esterase Negative (NEGATIVE) Urine RBC None seen (0-5/HPF) Urine WBC 0-1/hpf (0-5/HPF) Ur Squamous Epith Cells None seen (0-5/HPF) Urine Bacteria None seen (None) Urine Mucus 1+ H (Negative) Ur Culture Indicated? Cult not indicated Vol Urine Centrifuged 10ml (spun) Imaging Data CT scan - abdomen/pelvis: Radiologist's Impression: PROCEDURE: CT ABDOMEN PELVIS W CON INDICATIONS: acute jaundice, pain free TECHNIQUE: After the administration of intravenous contrast, axial sections acquired from the lung bases to the pubic symphysis. Coronal and sagittal reformats were performed. For radiation dose reduction, the following was used: automated exposure control, adjustment of mA and/or kV according to patient size. COMPARISON: [facility], CT, ABDOMEN/PELVIS WITH CONTRAST, 05/19/2017, 14:52. FINDINGS: Image quality: Diagnostic. Lower Chest: Heart is mildly prominent. Minimal pericardial effusion. Soft tissue density is present the anterior right chest wall unchanged possibly related to gynecomastia. ABDOMEN: Liver: Innumerable heterogeneously enhancing lesions are present within the liver. Gallbladder: Removed. Biliary ducts: Mild intrahepatic biliary dilation. Pancreas: No ductal dilation. Spleen: Size is within normal limits. Adrenal Glands: No adrenal nodules. Kidneys and Ureters: No hydronephrosis. No solid mass. No complex renal cystic lesion which requires follow up. Stomach and Bowel: Normal colonic caliber, without significant wall thickening. Peritoneum: No abnormal intraperitoneal fluid. No free air. Ventral Wall: No significant ventral hernia. Abdominal Nodes: Subcentimeter peripancreatic lymph nodes are present on series 2, image 69 measuring 1 cm. 0.7 cm periportal node is present series 2, image 58. Vessels: Aorta and inferior vena cava are normal in size. PELVIS: Pelvic Organs: Unremarkable. Bladder: No bladder wall thickening, accounting for underdistention. Pelvic Nodes: No enlarged lymph nodes. Miscellaneous: Bilateral fat containing inguinal hernias are seen. Bones: No aggressive osseous abnormality. Unchanged scattered punctate areas of sclerosis. IMPRESSION: Interval development of innumerable hepatic lesions highly concerning for malignancy. Minimal prominence of the intrahepatic biliary system. No distal obstruction is clearly identified. Borderline enlarged peripancreatic and periportal lymph nodes concerning for malignancy/metastatic disease given appearance of liver. Dictated by: Shelly Silva M.D. on 03/18/2025 at 16:55 MDM Narrative Medical decision making narrative: CC: Painless jaundice Complicating co-morbidities: History of hepatitis C, reportedly successfully treated Data collected from: patient Differential considered: Neoplastic process, common bile duct stone, acute hepatitis Exam documented above, pertinent findings include: Aside from his acute jaundice exam is otherwise benign Lab Test results independently reviewed as above. Pertinent findings: CBC shows no leukocytosis no anemia Chemistries show appropriate renal function Liver studies show bilirubin at 13.9, AST at 1:30 a.m., ALT 124, alk-phos 567, total protein 8.9. Use are all significantly changed from November 14 of this year Procalcitonin is elevated at 0.5 Imaging studies independently reviewed: CT scan shows multiple lesions presumably primary or metastatic processes in his liver consistent with his acute jaundice. No evidence of cholecystitis, pancreatic masses or other obstructing abnormalities Consultations: Oncology, Discussion: 75-year-old gentleman with painless jaundice, significant liver abnormalities progressive in the last month. CT scan concerning for liver cancer with metastases. Patient was expecting to hear similar findings. We discussed options and he would like to proceed with at least diagnosis and discussion with Oncology prior to deciding on further treatment. Dr. Rivera we will contact the patient to help expedite outpatient follow up and liver biopsy and patient does have an appointment with his primary physician in 2 days. All questions were answered and patient is safely discharged Discharge Plan Departure Patient Disposition: Home Clinical Impression: Cancer of liver not involving intrahepatic bile ducts Activity Restrictions/Additional Instructions: I am sorry that you waited so long in the emergency department today. I thank you for being so gracious with that extended time. Your CT scan unfortunately does show multiple areas of concern that are highly likely cancer throughout your liver. There are also some lymph nodes close to your liver that look like they may be involved as well. Your pancreas and bile ducts do not look like they are involved I spoke with Dr. Rivera, oncologist at [facility]. As you are not currently having any pain and there was no sign of infection, we do not need to keep you in the hospital. Please expect a phone call from the [facility] Oncology office within the next day or 2 to help set up a liver biopsy and then oncology follow up. With this information you will have enough details to make decisions regarding future treatment Please do keep your appointment with Dr. Sorto on . If you feel that you are getting worse, nausea, vomiting, vomiting any type blood, pain or new findings feel free to return to the emergency department Prescriptions: No Action Eliquis 5 mg tablet 5 mg PO BID Qty: 180 3RF lisinopril 20 mg tablet 20 mg PO DAILY Qty: 90 3RF atorvastatin 20 mg tablet 20 mg PO DAILY cholecalciferol (vitamin D3) 50 mcg (2,000 unit) capsule 50 mcg PO DAILY triamcinolone acetonide 0.1 % cream 1 applic Topical BIDP PRN (Reason: Rash) Qty: 30 5RF hydrochlorothiazide 12.5 mg capsule 12.5 mg PO BID allopurinol 300 mg tablet 300 mg PO DAILY Qty: 90 3RF tamsulosin 0.4 mg capsule 0.4 mg PO DAILY Qty: 90 3RF metoprolol succinate 50 mg tablet extended release 24 hr 50 mg PO BID potassium chloride [Klor-Con M20] 20 mEq tablet,ER particles/crystals 60 meq PO BID amlodipine 5 mg tablet 5 mg PO BID Qty: 180 3RF Rx Instructions: start taking 5 mg BID colchicine 0.6 mg tablet 0.6 mg PO BID PRN (Reason: gout) Qty: 20 1RF Rx Instructions: take one tablet twice a day as needed when having gout attacks (DME) Respironics DreamStation BIPAP Qty: 1 Dose Instruction: As directed Patient Comments: Pressure: IPAP 18 EPAP 6 DME: [facility] Rx Instructions: As directed Referrals: Elvin Sorto DO [Primary Care Provider, Family Practice] Stand Alone Forms: Patient Portal/API
--- NOTE | 2025-03-18 15:47 | DI.RAD.S_ITS ---
PROCEDURE: XR CHEST 1V INDICATIONS: jaundice TECHNIQUE: One view of the chest was acquired. COMPARISON: None. FINDINGS: Surgical changes and devices: None. Lungs and pleura: Lungs are clear. No pleural effusions or pneumothorax. Mediastinum: Mediastinal contours appear normal. Heart size is enlarged. Bones and chest wall: No suspicious bony lesions. Overlying soft tissues appear unremarkable. IMPRESSION: No acute cardiopulmonary abnormality is seen. Dictated by: Omar Warren M.D. on 03/18/2025 at 16:37 Approved by: Omar Warren M.D. on 03/18/2025 at 16:37
[2025-03-18 15:55] LABS: Add Manual Diff / Slide Review NO; Hematocrit 43.7 % (41-53); Hemoglobin 14.9 g/dL (13.5-17.5); Lymphocytes Absolute Auto 2000 /uL (1100-4500); Mean Corpuscular HGB Conc 34.1 % (30-36); Mean Corpuscular Hemoglobin 34.8 PG (26-34); Mean Corpuscular Volume 101.8 fL (80-100); Platelet Count 176 X10^3/uL (150-400)
[2025-03-18 16:05] LABS: INR 1.6 (0.9-1.3); Prothrombin Time 18.1 SECONDS (9.4-12.5)
[2025-03-18 16:11] LABS: Lactate (Lactic Acid) 1.2 mmol/L (0.7-2.1)
[2025-03-18 16:12] LABS: Alanine Aminotransferase 124 IU/L (<50); Albumin 4.5 g/dL (3.5-5.0); Albumin Globulin Ratio 1.0 (1.0-2.8); Alkaline Phosphatase 567 U/L (38-126); Blood Urea Nitrogen 22 mg/dL (9-20); Calcium 9.5 mg/dL (8.4-10.2); Carbon Dioxide 27 mmol/L (22-32); Chloride 100 mmol/L (98-107); Estimated Glomerular Filt Rate > 60 mL/min (>60); Globulin 4.4 g/dL (1.7-4.1); Glucose 131 mg/dL (70-99); HEMOLYSIS < 15 (0-50); Lipase 61 U/L (23-300); Magnesium 2.0 mg/dL (1.6-2.3); Potassium 4.3 mmol/L (3.4-5.1); Sodium 140 mmol/L (137-145); Total Protein 8.9 g/dL (6.3-8.2)
[2025-03-18 16:13] LABS: PTT Partial Thromboplastin Tim 40 SECONDS (25.1-36.5)
[2025-03-18 16:28] LABS: Procalcitonin 0.501 ng/mL (<0.5)
[2025-03-18 16:48] LABS: Appearance Urine UA CLEAR; Bilirubin Urine UA 3+ (NEGATIVE); Color Urine UA YELLOW; Glucose Urine UA NEGATIVE (Negative); Ketones Urine UA NEGATIVE (NEGATIVE); Leukocyte Esterase Urine UA NEGATIVE (NEGATIVE); Nitrite Urine UA NEGATIVE (Negative); Occult Blood Urine UA NEGATIVE (Negative); Protein Urine UA NEGATIVE (Negative); Specific Gravity Urine UA 1.010 (1.000-1.035); Urobilinogen Urine UA 2.0 E.U./dL (0.2); pH Urine UA 5.5 (4.5-8.0)
[2025-03-18 17:07] LABS: Culture Indicated Urine Cult Not Indicated
[2025-03-18 17:09] LABS: Ictotest Urine Positive (Negative)
[2025-03-18 23:56] VITALS: BP 173/96; PULSE 83; RESP 23; O2SAT 95
== END 2025-03-19 00:43 | disposition home or self-care (01) ==
PROVIDERS: Emergency Provider Emergency Medicine; PCP Family Medicine
DX: C22.8 Malignant neoplasm of liver, primary, unspecified as to type (principal); Z86.19 Personal history of other infectious and parasitic diseases
CPT/HCPCS: 36415; 71045; 74177; 80053; 81001; 83605; 83690; 83735; 84145; 85025; 85610; 85730; 99283; 99284; Q9967